=== PATIENT | female | born 1985 | race Caucasian/White ===

== ENCOUNTER → 2016-05-31 | Outpatient (CLI) | payer BC, MEDICAID, OTHER | LOC: MW.CHOBGYN 13:07 | PROVIDERS: ATTEND Nurse Practitioner Women's Health | DX: Z32.00 Encounter for pregnancy test, result unknown (principal) | CPT/HCPCS: 36415; 84702 ==

== ENCOUNTER → 2016-07-21 | Outpatient (CLI) | payer MEDICAID ==
[2016-07-21 11:11] LABS: HIV12 AG/AB 4TH GEN W/REFLEX 0.1 (<1.0)
== END ==
LOC: MW.CHOBGYN 08:49
PROVIDERS: ATTEND Advanced Practice Midwife
DX: Z34.90 Encounter for supervision of normal pregnancy, unspecified, unspecified trimester (principal)
CPT/HCPCS: 36415; 80305; 82950; 85025; 86592; 86762; 86803; 86850; 86900; 86901; 87086; 87340; 87389

== ENCOUNTER 2017-01-24 00:57 | Inpatient (IN) | payer MEDICAID ==
[2017-01-24] MEDS ORDERED: Misoprostol 25 MCG (1/4 of 100 MCG) Tab VAG PRN (01:05)
[2017-01-24] MEDS ORDERED: Sodium Chloride 0.9% 10 ML Syringe FLUSH PRN (01:05)
[2017-01-24] MEDS ORDERED: Methylergonovine 0.2 MG/1 ML Amp IM PRN (01:05)
[2017-01-24] MEDS ORDERED: Terbutaline 1 MG/ML SDV SUBCUT PRN (01:05)
[2017-01-24] MEDS ORDERED: Butorphanol 1 MG/ML SDV IVPUSH PRN (01:05)
[2017-01-24] MEDS ORDERED: Sodium Chloride 0.9% 2.5 ML Syringe FLUSH PRN (01:05)
[2017-01-24] MEDS ORDERED: Misoprostol 200 MCG Tab PO PRN (01:05)
[2017-01-24] MEDS ORDERED: Nalbuphine 10 MG/1 ML Vial IVPUSH PRN (01:05)
[2017-01-24] MEDS ORDERED: Lidocaine 1% 50 ML MDV INJECT PRN (01:05)
[2017-01-24] MEDS ORDERED: Water For Irrigation,Sterile 1,000 ML Container IRR PRN (01:05)
[2017-01-24] MEDS ORDERED: Carboprost Tromethamine 250 MCG/1 ML Amp IM PRN (01:05)
[2017-01-24] MEDS ORDERED: Misoprostol 25 MCG (1/4 of 100 MCG) Tab PO PRN (01:05)
[2017-01-24] MEDS ORDERED: Misoprostol 25 MCG (1/4 of 100 MCG) Tab VAG SCH (01:15)
[2017-01-24] MEDS ORDERED: Oxytocin/0.9 % Sodium Chloride 30 UNIT/500 ML BAG IV SCH (01:15)
[2017-01-24] MEDS ORDERED: Misoprostol 25 MCG (1/4 of 100 MCG) Tab PO SCH (01:15)
[2017-01-24] MEDS: Lactated Ringers 1,000 ML IV SCH ×2 (01:30→20:16)
--- NOTE | 2017-01-24 08:23 | PCM.LDHP ---
L&D History of Present Illness - General Date of Service: 01/24/17 Admit Problem/Dx: Patient Status Order with Admit Dx/Problem 01/24/17 01:05 Patient Status [ADT] Routine Admission Diagnosis/Problem Admission Diagnosis/Problem - planned 01/24/17 08:18 31yo 38 3/7wk IOL due to GDMA2. 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 Neurological History: Reports: Migraines Psychiatric History: Reports: Anxiety, Depression Endocrine/Metabolic History: Reports: Diabetes, Gestational - Infectious Disease History Infectious Disease History: Reports: Chicken Pox - Past Surgical History Female Surgical History: Reports: Lithotripsy/ESWL Endocrine Surgical History: Reports: None Social & Family History - Family History HEENT: Reports: Glaucoma, Impaired Vision, Macular Degeneration, Other (See Below) Other HEENT Family History: Father of patient had Fuchs' Corneal dystrophy and bilateral corneal transplant Cardiac: Reports: Bypass, Heart Failure, High Cholesterol, Hypertension, Other ( See Below) Respiratory: Reports: Other (See Below) Other Respiratory Family Hisory: Emphysema : Reports: Other (See Below) Other Family History: Father of patient had left nephrectomy r/t kidney cancer and a prostatectomy r/t prostate cancer. OBGYN: Reports: , Other (See Below) Other OBGYN Family History: Mother of patient had a breast lumpectomy x2. Neurological: Reports: Migraines, Parkinson's Psychiatric: Reports: Anxiety, Depression Endocrine/Metabolic: Reports: Diabetes, type II Oncologic: Reports: Colon, Prostate, Renal, Other (See Below) Other Oncologic Family History: Stomach - Tobacco Use Smoking Status *Q: Never Smoker Second Hand Smoke Exposure: No - Caffeine Use Caffeine Use: Reports: Coffee, Soda - Recreational Drug Use Recreational Drug Use: No H&P Review of Systems - Review of Systems: Review Of Systems: See Below General: Reports: No Symptoms HEENT: Reports: No Symptoms Pulmonary: Reports: No Symptoms Cardiovascular: Reports: No Symptoms Gastrointestinal: Reports: No Symptoms Genitourinary: Reports: No Symptoms Musculoskeletal: Reports: No Symptoms Skin: Reports: No Symptoms Psychiatric: Reports: No Symptoms Neurological: Reports: No Symptoms Hematologic/Lymphatic: Reports: No Symptoms Immunologic: Reports: No Symptoms L&D Exam - Exam Exam: See Below - Vital Signs Weight: 96.615 kg - Callejas Score Callejas Score Cervix Position: Anterior Callejas Score Consistency: Soft Callejas Score Effacement: 51-70% Callejas Score Dilation: 1-2 cm Callejas Score 's Station: -2 Callejas Score Total: 8 - Exam General: Alert, Oriented, Cooperative Cardiovascular: Regular Rate, Regular Rhythm, Normal S1, Normal S2 GI/Abdominal Exam: Soft, Non-Tender, No Organomegaly (gravid), No Abnormal Bruit , Pelvis Stable Rectal Exam: Deferred Genitourinary: Normal bimanual exam Back Exam: Full Range of Motion Extremities: Normal Range of Motion, Non-Tender, No Pedal Edema, Normal Capillary Refill Skin: Warm, Dry, Intact Neurological: Reflexes Equal Bilateral, Normal Speech, Normal Tone, Sensation Intact Psychiatric: Alert, Normal Affect, Normal Mood - Patient Data Lab Results Last 24 hrs: Laboratory Results - last 24 hr 01/24/17 01/24/17 Range/Units 01:30 01:30 WBC 8.35 (4.0-11.0) K/uL RBC 3.63 L (4.30-5.90) M/uL Hgb 10.5 L (12.0-16.0) g/dL Hct 32.6 L (36.0-46.0) % MCV 89.8 (80.0-98.0) fL MCH 28.9 (27.0-32.0) pg MCHC 32.2 (31.0-37.0) g/dL RDW Std Deviation 45.0 (28.0-62.0) fl RDW Coeff of Troy 15 (11.0-15.0) % Plt Count 166 (150-400) K/uL MPV 11.50 (7.40-12.00) fL Blood Type A POSITIVE Antibody Screen NEGATIVE Result Diagrams: 01/24/17 01:30 - Problem List (1) Supervision of normal IUP (intrauterine ) in primigravida SNOMED Code(s): 45324823, 916165779, 942380671 ICD Code: Z34.00 - ENCNTR FOR SUPRVSN OF NORMAL FIRST , UNSP TRIMESTER Status: Acute Priority: High Current Visit: Yes Qualifiers: Trimester: third trimester Qualified Code(s): Z34.03 - Encounter for supervision of normal first , third trimester (2) Gestational diabetes SNOMED Code(s): 77877123 ICD Code: O24.419 - GESTATIONAL DIABETES MELLITUS IN , UNSP CONTROL Status: Acute Priority: High Current Visit: Yes Qualifiers: Gestational diabetes mellitus control: oral hypoglycemic-controlled Trimester: third trimester Qualified Code(s): O24.415 - Gestational diabetes mellitus in , controlled by oral hypoglycemic drugs Problem List Initiated/Reviewed/Updated: Yes Orders Last 24hrs: Active Orders 24 hr Category Date Time Status Patient Status [ADT] Routine ADT 01/24/17 01:05 Active Bedrest Bathroom Privileges [RC] ASDIRECTED Care 01/24/17 01:05 Active Communication Order [RC] ASDIRECTED Care 01/24/17 01:05 Active May Shower [RC] ASDIRECTED Care 01/24/17 01:05 Active Notify Provider [RC] PRN Care 01/24/17 01:05 Active Oxygen Therapy [RC] ASDIRECTED Care 01/24/17 01:05 Active Up ad Jocelyne [RC] ASDIRECTED Care 01/24/17 01:05 Active Vital Signs [RC] PER UNIT ROUTINE Care 01/24/17 01:05 Active Regular Diet [DIET] Diet 01/24/17 Breakfast Active Butorphanol [Stadol] Med 01/24/17 01:05 Active 1 mg IVPUSH Q1H PRN Carboprost Tromethamine [Hemabate DS] Med 01/24/17 01:05 Active 250 mcg IM ASDIRECTED PRN Lactated Ringers [Ringers, Lactated] 1,000 ml Med 01/24/17 01:15 Active IV ASDIRECTED Lidocaine 1% [Xylocaine 1%] Med 01/24/17 01:05 Active 50 ml INJECT .ONCE PRN Methylergonovine [Methergine] Med 01/24/17 01:05 Active 0.2 mg IM ASDIRECTED PRN Misoprostol [Cytotec] Med 01/24/17 01:05 Active 200 mcg PO .ONCE PRN Misoprostol [Cytotec] Med 01/24/17 01:15 Active 25 mcg PO .ONCE Misoprostol [Cytotec] Med 01/24/17 01:05 Active 25 mcg PO Q4H PRN Misoprostol [Cytotec] Med 01/24/17 01:15 Active 25 mcg VAG .ONCE Misoprostol [Cytotec] Med 01/24/17 01:05 Active 25 mcg VAG Q4H PRN Nalbuphine [Nubain] Med 01/24/17 01:05 Active 10 mg IVPUSH Q1H PRN Oxytocin/0.9 % Sodium Chloride [Oxytocin 30 Unit/500 ML Med 01/24/17 01:15 Active -NS] 30 unit in 500 ml IV TITRATE Oxytocin/0.9 % Sodium Chloride [Oxytocin 30 Unit/500 ML Med 01/24/17 01:15 Active -NS] 30 unit in 500 ml IV TITRATE Sodium Chloride 0.9% [Saline Flush] Med 01/24/17 01:05 Active 10 ml FLUSH ASDIRECTED PRN Sodium Chloride 0.9% [Saline Flush] Med 01/24/17 01:05 Active 2.5 ml FLUSH ASDIRECTED PRN Terbutaline [Brethine] Med 01/24/17 01:05 Active 0.25 mg SUBCUT ASDIRECTED PRN Water For Irrigation,Sterile [Sterile Water for Med 01/24/17 01:05 Active Irrigation] 1,000 ml IRR ASDIRECTED PRN Scalp Electrode [WOMSER] Per Unit Routine Oth 01/24/17 01:05 Ordered Medication Administration Instruction [OM.PC] Q3H Oth 01/24/17 01:15 Ordered Peripheral IV Insertion Adult [OM.PC] Routine Oth 01/24/17 01:05 Ordered Resuscitation Status Routine Resus Stat 01/24/17 01:05 Ordered Medication Orders Butorphanol Tartrate (Stadol) 1 mg IVPUSH Q1H PRN PRN Reason: Pain Carboprost Tromethamine (Hemabate Ds) 250 mcg IM ASDIRECTED PRN PRN Reason: Post Hemorrhage Lactated Ringer's (Ringers, Lactated) 1,000 mls @ 150 mls/hr IV ASDIRECTED KALLIE Last Admin: 01/24/17 01:30 Dose: 999 mls/hr Oxytocin/Sodium Chloride (Oxytocin 30 Unit/500 Ml-Ns) 30 unit in 500 mls @ 500 mls/hr IV TITRATE KALLIE Oxytocin/Sodium Chloride (Oxytocin 30 Unit/500 Ml-Ns) 30 unit in 500 mls @ 2 mls/hr IV TITRATE KALLIE; 2 MUNITS/MIN PRN Reason: Protocol Lidocaine HCl (Xylocaine 1%) 50 ml INJECT .ONCE PRN PRN Reason: Laceration repair Methylergonovine Maleate (Methergine) 0.2 mg IM ASDIRECTED PRN PRN Reason: Post Hemorrhage Misoprostol (Cytotec) 200 mcg PO .ONCE PRN PRN Reason: Post Hemorrhage Misoprostol (Cytotec) 25 mcg VAG .ONCE KALLIE Last Admin: 01/24/17 01:47 Dose: 25 mcg Misoprostol (Cytotec) 25 mcg VAG Q4H PRN PRN Reason: Cervical Ripening Misoprostol (Cytotec) 25 mcg PO .ONCE KALLIE Last Admin: 01/24/17 01:47 Dose: 25 mcg Misoprostol (Cytotec) 25 mcg PO Q4H PRN PRN Reason: Cervical Ripening Nalbuphine HCl (Nubain) 10 mg IVPUSH Q1H PRN PRN Reason: Pain (severe 7-10) Sodium Chloride (Saline Flush) 10 ml FLUSH ASDIRECTED PRN PRN Reason: Keep Vein Open Sodium Chloride (Saline Flush) 2.5 ml FLUSH ASDIRECTED PRN PRN Reason: Keep Vein Open Sterile Water (Sterile Water For Irrigation) 1,000 ml IRR ASDIRECTED PRN PRN Reason: delivery Terbutaline Sulfate (Brethine) 0.25 mg SUBCUT ASDIRECTED PRN PRN Reason: Tacysystole Assessment/Plan Comment:: IOL A: 31yo 38 3/7wk IOL due to GDMA2. A+, RI, GBS neg P: Admit to L&D, Cytotec to pitocin per protocol, epidural prn. Dr Seay updated on pt status.
[2017-01-24] MEDS: Oxytocin/0.9 % Sodium Chloride 30 UNIT/500 ML BAG IV SCH (08:37)
[2017-01-24] MEDS ORDERED: Ondansetron 4 MG/2 ML SDV IVPUSH PRN (09:17)
[2017-01-24] MEDS ORDERED: Ropivacaine HCl/PF 100 ML ONE (19:35)
[2017-01-24] MEDS ORDERED: fentaNYL 100 MCG/2 ML SDV ONE (19:35)
--- NOTE | 2017-01-24 20:15 | PCM.PREANE ---
Preanesthetic Assessment - Anesthesia/Transfusion/Family Hx Anesthesia History: Prior Anesthesia Without Reaction Transfusion History: No Prior Transfusion(s) - Review of Systems General: No Symptoms Pulmonary: No Symptoms Cardiovascular: No Symptoms Gastrointestinal: No Symptoms Neurological: No Symptoms Other: Reports: None - Physical Assessment Height: 5 ft 1 in Weight: 96.615 kg ASA Class: 2 Mental Status: Alert & Oriented x3 Airway Class: Mallampati = 2 Dentition: Reports: Normal Dentition Thyro-Mental Finger Breadths: 3 Mouth Opening Finger Breadths: 3 ROM/Head Extension: Full Lungs: Clear to Auscultation, Normal Respiratory Effort Cardiovascular: Regular Rate, Regular Rhythm - Lab Values: Laboratory Last Values WBC 8.35 K/uL (4.0-11.0) 01/24/17 01:30 RBC 3.63 M/uL (4.30-5.90) L 01/24/17 01:30 Hgb 10.5 g/dL (12.0-16.0) L 01/24/17 01:30 Hct 32.6 % (36.0-46.0) L 01/24/17 01:30 MCV 89.8 fL (80.0-98.0) 01/24/17 01:30 MCH 28.9 pg (27.0-32.0) 01/24/17 01:30 MCHC 32.2 g/dL (31.0-37.0) 01/24/17 01:30 RDW Std Deviation 45.0 fl (28.0-62.0) 01/24/17 01:30 RDW Coeff of Troy 15 % (11.0-15.0) 01/24/17 01:30 Plt Count 166 K/uL (150-400) 01/24/17 01:30 MPV 11.50 fL (7.40-12.00) 01/24/17 01:30 Blood Type A POSITIVE 01/24/17 01:30 Antibody Screen NEGATIVE 01/24/17 01:30 - Allergies Allergies/Adverse Reactions: Allergies Allergy/AdvReac Type Severity Reaction Status Date / Time imitrex Allergy Shortness Uncoded 12/25/16 10:33 of Breath - Acknowledgements Anesthesia Type Planned: Epidural Pt an Appropriate Candidate for the Planned Anesthesia: Yes Alternatives and Risks of Anesthesia Discussed w Pt/Guardian: Yes Pt/Guardian Understands and Agrees with Anesthesia Plan: Yes PreAnesthesia Questionnaire HEENT History: Reports: None Cardiovascular History: Reports: None Respiratory History: Reports: None Gastrointestinal History: Reports: GERD Genitourinary History: Reports: Renal Calculus 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: , 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 : 1 Para: 0 LMP (Approximate): Musculoskeletal History: Reports: None Neurological History: Reports: Migraines Psychiatric History: Reports: Anxiety, Depression Endocrine/Metabolic History: Reports: Diabetes, Gestational, Obesity/BMI 30+ - Infectious Disease History Infectious Disease History: Reports: Chicken Pox - Past Surgical History Female Surgical History: Reports: Lithotripsy/ESWL Endocrine Surgical History: Reports: None - SUBSTANCE USE Smoking Status *Q: Never Smoker Tobacco Use Within Last Twelve Months: No Second Hand Smoke Exposure: No Recreational Drug Use History: No - CURRENT (IN HOUSE) MEDS Current Meds: Current Medications Butorphanol Tartrate (Stadol) 1 mg IVPUSH Q1H PRN PRN Reason: Pain Carboprost Tromethamine (Hemabate Ds) 250 mcg IM ASDIRECTED PRN PRN Reason: Post Hemorrhage Lactated Ringer's (Ringers, Lactated) 1,000 mls @ 150 mls/hr IV ASDIRECTED KALLIE Last Admin: 01/24/17 01:30 Dose: 999 mls/hr Oxytocin/Sodium Chloride (Oxytocin 30 Unit/500 Ml-Ns) 30 unit in 500 mls @ 500 mls/hr IV TITRATE KALLIE Oxytocin/Sodium Chloride (Oxytocin 30 Unit/500 Ml-Ns) 30 unit in 500 mls @ 2 mls/hr IV TITRATE KALLIE; 2 MUNITS/MIN PRN Reason: Protocol Last Titration: 01/24/17 16:44 Dose: 17 munits/min, 17 mls/hr Lidocaine HCl (Xylocaine 1%) 50 ml INJECT .ONCE PRN PRN Reason: Laceration repair Methylergonovine Maleate (Methergine) 0.2 mg IM ASDIRECTED PRN PRN Reason: Post Hemorrhage Misoprostol (Cytotec) 200 mcg PO .ONCE PRN PRN Reason: Post Hemorrhage Misoprostol (Cytotec) 25 mcg VAG .ONCE KALLIE Last Admin: 01/24/17 01:47 Dose: 25 mcg Misoprostol (Cytotec) 25 mcg VAG Q4H PRN PRN Reason: Cervical Ripening Misoprostol (Cytotec) 25 mcg PO .ONCE KALLIE Last Admin: 01/24/17 01:47 Dose: 25 mcg Misoprostol (Cytotec) 25 mcg PO Q4H PRN PRN Reason: Cervical Ripening Nalbuphine HCl (Nubain) 10 mg IVPUSH Q1H PRN PRN Reason: Pain (severe 7-10) Ondansetron HCl (Zofran) 4 mg IVPUSH Q6H PRN PRN Reason: Nausea/Vomiting Sodium Chloride (Saline Flush) 10 ml FLUSH ASDIRECTED PRN PRN Reason: Keep Vein Open Sodium Chloride (Saline Flush) 2.5 ml FLUSH ASDIRECTED PRN PRN Reason: Keep Vein Open Sterile Water (Sterile Water For Irrigation) 1,000 ml IRR ASDIRECTED PRN PRN Reason: delivery Terbutaline Sulfate (Brethine) 0.25 mg SUBCUT ASDIRECTED PRN PRN Reason: Tacysystole Discontinued Medications Fentanyl (Sublimaze) Confirm Administered Dose 100 mcg .ROUTE .STK-MED ONE Stop: 01/24/17 19:36 Ropivacaine (Naropin 0.2%) Confirm Administered Dose 100 mls @ as directed .ROUTE .STK-MED ONE Stop: 01/24/17 19:36
[2017-01-24] MEDS: Acetaminophen 500 MG Tab PO PRN (22:46)
[2017-01-25] MEDS ORDERED: Ropivacaine HCl/PF 100 ML ONE ×2 (04:39→15:52)
[2017-01-25] MEDS: Lactated Ringers 1,000 ML IV SCH (04:46)
[2017-01-25] MEDS ORDERED: Bupivacaine 0.5% 10 ML SDV ONE ×2 (04:46→20:07)
[2017-01-25] MEDS: Acetaminophen 500 MG Tab PO PRN ×3 (05:09→19:45)
--- NOTE | 2017-01-25 09:02 | PCM.PNLD ---
Labor Progress Note - VS & Meds Active Medications: Current Medications Acetaminophen (Tylenol Extra Strength) 1,000 mg PO Q6H PRN PRN Reason: Headache Last Admin: 01/25/17 05:09 Dose: 1,000 mg Butorphanol Tartrate (Stadol) 1 mg IVPUSH Q1H PRN PRN Reason: Pain Carboprost Tromethamine (Hemabate Ds) 250 mcg IM ASDIRECTED PRN PRN Reason: Post Hemorrhage Lactated Ringer's (Ringers, Lactated) 1,000 mls @ 150 mls/hr IV ASDIRECTED KALLIE Last Admin: 01/25/17 04:46 Dose: 150 mls/hr Oxytocin/Sodium Chloride (Oxytocin 30 Unit/500 Ml-Ns) 30 unit in 500 mls @ 500 mls/hr IV TITRATE KALLIE Oxytocin/Sodium Chloride (Oxytocin 30 Unit/500 Ml-Ns) 30 unit in 500 mls @ 2 mls/hr IV TITRATE KALLIE; 2 MUNITS/MIN PRN Reason: Protocol Last Titration: 01/25/17 00:12 Dose: 20 munits/min, 20 mls/hr Lidocaine HCl (Xylocaine 1%) 50 ml INJECT .ONCE PRN PRN Reason: Laceration repair Methylergonovine Maleate (Methergine) 0.2 mg IM ASDIRECTED PRN PRN Reason: Post Hemorrhage Misoprostol (Cytotec) 200 mcg PO .ONCE PRN PRN Reason: Post Hemorrhage Misoprostol (Cytotec) 25 mcg VAG .ONCE KALLIE Last Admin: 01/24/17 01:47 Dose: 25 mcg Misoprostol (Cytotec) 25 mcg VAG Q4H PRN PRN Reason: Cervical Ripening Misoprostol (Cytotec) 25 mcg PO .ONCE KALLIE Last Admin: 01/24/17 01:47 Dose: 25 mcg Misoprostol (Cytotec) 25 mcg PO Q4H PRN PRN Reason: Cervical Ripening Nalbuphine HCl (Nubain) 10 mg IVPUSH Q1H PRN PRN Reason: Pain (severe 7-10) Ondansetron HCl (Zofran) 4 mg IVPUSH Q6H PRN PRN Reason: Nausea/Vomiting Sodium Chloride (Saline Flush) 10 ml FLUSH ASDIRECTED PRN PRN Reason: Keep Vein Open Sodium Chloride (Saline Flush) 2.5 ml FLUSH ASDIRECTED PRN PRN Reason: Keep Vein Open Sterile Water (Sterile Water For Irrigation) 1,000 ml IRR ASDIRECTED PRN PRN Reason: delivery Terbutaline Sulfate (Brethine) 0.25 mg SUBCUT ASDIRECTED PRN PRN Reason: Tacysystole Discontinued Medications Bupivacaine HCl (Sensorcaine-Mpf 0.5%) Confirm Administered Dose 10 ml .ROUTE .STK-MED ONE Stop: 01/25/17 04:47 Fentanyl (Sublimaze) Confirm Administered Dose 100 mcg .ROUTE .STK-MED ONE Stop: 01/24/17 19:36 Ropivacaine (Naropin 0.2%) Confirm Administered Dose 100 mls @ as directed .ROUTE .STK-MED ONE Stop: 01/24/17 19:36 Ropivacaine (Naropin 0.2%) Confirm Administered Dose 100 mls @ as directed .ROUTE .STK-MED ONE Stop: 01/25/17 04:40 - Uterine Contractions Uterine Monitoring Mode: External [place] Contraction Intensity: Mild Uterine Resting Tone: Soft - Monitoring Monitor Mode: External Ultrasound Heart Rate (FHR) Baseline: 127 Heart Rate (FHR) Per Doppler: 136 Heart Rate (FHR) Variability: Moderate (6-25 bmp) Accelerations: Present, 10x10 (=/<32 wks) Decelerations: None Strip Review: Category I - Vaginal Exam Dilation (cm): 3 Effacement (Percent): 90 Station: -3 - Labor Progress (Free Text) Labor Progress: Start dictation on this patient and will start her again on side effects 25 mg by mouth and 25 mg vaginally and we will monitor her labor and would reevaluate at noon
[2017-01-25] MEDS: Oxytocin/0.9 % Sodium Chloride 30 UNIT/500 ML BAG IV SCH (13:14)
[2017-01-25] MEDS ORDERED: fentaNYL 100 MCG/2 ML SDV ONE ×4 (15:51→21:23)
--- NOTE | 2017-01-25 16:36 | PCM.SN ---
- Free Text/Narrative Note: Called to OB to restart patient epidural now that labor is more intense. Bolused with 10 ml 0.2% Naropin and 100 mcg Fentanyl (total 12 ml). Infusion of Naropin 0.2% 100 ml with Fentanyl 200 mcg started at 8 ml/hour as previously infused wtih bolus option every 15 minutes x 2 per hour of 5 ml (total 18 ml/ hour). Patient comfortable except for small window on right hip. Patient turned to right side per RN. Male in room states she has had hip pain with and has had to be adjusted twice.
[2017-01-25] MEDS ORDERED: Sodium Chloride 0.9% 2.5 ML Syringe FLUSH PRN (19:52)
[2017-01-25] MEDS ORDERED: ceFAZolin 2 GM in Premix Bag 1 BAG IV ONE (19:52)
[2017-01-25] MEDS ORDERED: Sodium Chloride 0.9% 10 ML Syringe FLUSH PRN (19:52)
[2017-01-25] MEDS ORDERED: Lactated Ringers 1,000 ML IV SCH ×2 (20:00→21:15)
[2017-01-25] MEDS ORDERED: Citric Acid/Sodium Citrate Solution 30 ML Cup PO SCH (20:00)
[2017-01-25] MEDS ORDERED: Oxytocin/0.9 % Sodium Chloride 30 UNIT/500 ML BAG IV SCH (20:00)
[2017-01-25] MEDS ORDERED: Oxytocin 10 Units/1 ML SDV ONE (20:02)
[2017-01-25] MEDS ORDERED: Ondansetron 4 MG/2 ML SDV ONE (20:02)
[2017-01-25] MEDS ORDERED: Morphine PF 10 MG/10 ML SDV ONE (20:04)
[2017-01-25] MEDS ORDERED: Midazolam 1 MG/ML 2 ML SDV ONE (20:51)
[2017-01-25] MEDS ORDERED: fentaNYL 100 MCG/2 ML SDV IVPUSH PRN (21:00)
[2017-01-25] MEDS ORDERED: Acetaminophen/oxyCODONE 325-5 MG Tab PO PRN ×3 (21:00→21:11)
[2017-01-25] MEDS ORDERED: Nalbuphine 10 MG/1 ML Vial IVPUSH PRN (21:00)
[2017-01-25] MEDS ORDERED: Octyl 2-Cyanoacrylate 1 Tube ONE (21:06)
[2017-01-25] MEDS ORDERED: Lanolin 100% Cream 7 GM Tube TOP PRN (21:11)
[2017-01-25] MEDS ORDERED: Bisacodyl 10 MG Supp RECTAL PRN (21:11)
[2017-01-25] MEDS ORDERED: Ondansetron 4 MG/2 ML SDV IV PRN (21:11)
[2017-01-25] MEDS ORDERED: Ibuprofen 800 MG Tab PO PRN (21:11)
[2017-01-25] MEDS ORDERED: diphenhydrAMINE 50 MG/ML SDV IVPUSH PRN (21:11)
--- NOTE | 2017-01-25 21:15 | PCM.OPNOTE ---
- General Post-Op/Procedure Note Date of Surgery/Procedure: 01/25/17 Operative Procedure(s): Primary C/ Section Term Post-Op Diagnosis: Same Anesthesia Technique: Epidural Primary Surgeon: Papi Seay Waste Treatment Operator: Bhavya Olson EBL in mLs: 700 Complications: None Condition: Good
[2017-01-25] MEDS ORDERED: Sodium Chloride 0.9% 20 ML ONE (21:24)
[2017-01-25] MEDS: Ketorolac 30 MG/ML SDV IVPUSH SCH (21:45)
--- NOTE | 2017-01-25 22:14 | PCM.POSTAN ---
POST ANESTHESIA ASSESSMENT - MENTAL STATUS Mental Status: Alert, Oriented - RESPIRATORY Respiratory Status: Respiratory Rate WNL, Airway Patent, O2 Saturation Stable - CARDIOVASCULAR CV Status: Pulse Rate WNL, Blood Pressure Stable - GASTROINTESTINAL GI Status: No Symptoms - POST OP HYDRATION Hydration Status: Adequate & Stable
--- NOTE | 2017-01-26 01:14 | OR ---
SURGEON: Papi Seay MD DATE OF PROCEDURE: PREOPERATIVE DIAGNOSES: Term , -induced hypertension, and failed induction. POSTOPERATIVE DIAGNOSES: Term , -induced hypertension, and failed induction. OPERATION PERFORMED: Primary low transverse section. PHOTOGRAPHIC PLATEMAKER: Bhavya Olson, certified nurse honing machine operator. ANESTHESIA: Epidural, Bush[place], nurse respiratory therapy technician and Dr. Castelan. ESTIMATED BLOOD LOSS: 700 mL. COMPLICATIONS: None. FINDINGS: Female fetus, score reported to be 8 and 9. The manager forensic attending the delivery is Dr. Alfaro. The weight is not available at this time. INDICATION: This patient is followed in our clinic. She is term. She is primigravida and she had PIH. She is admitted for elective induction. The patient induced with Cytotec and Pitocin. She progressed to 3 cm. She had epidural anesthesia. She had artificial rupture of the membrane. In spite of adequate contraction, the patient did not progress beyond 3 cm and she was ruptured over 24 hours. She started spiking fever and failure to progress and failed induction is diagnosed at this time and a decision was made to do a primary low transverse section. PROCEDURE IN DETAIL: The patient was brought to the OR, properly identified, and after adequate level of epidural anesthesia with a Kendall catheter in the bladder. The patient was prepped and draped in sterile fashion as usual. A time-out was taken, and then low transverse skin incision was done. The Misael's fascia and rectus fascia were opened in the direction of the incision. The 2 recti muscles were and peritoneal cavity was entered. Bladder flap was raised in the usual manner pushing the bladder away from the lower uterine segment. Low transverse uterine incision was done and extended manually, and fetus was delivered, was in a vertex position. Nuchal cord x1 is noted. The fetus once delivered, cried immediately. score reported to be 8 and 9. The weight is not available. The placenta delivered spontaneous, complete, and intact and repair of the lower uterine segment done with 2-0 Vicryl continuous interlocking for hemostasis. Reperitonealization done with 3-0 Vicryl continuous, and then the peritoneal cavity evacuated completely from all blood and blood clot and closed with 3-0 Vicryl continuous. The rectus fascia was closed with #1 PDS double strand continuous and the Misael's fascia is with 3-0 Vicryl continuous. The skin closed with 3-0 Vicryl in a subcuticular fashion using a Rodney needle and Dermabond. Instrument and sponge count was correct. The patient tolerated the procedure well, went to recovery room in stable general condition. SHAHANA BUCHANAN /[id number]
[2017-01-26] MEDS: Ketorolac 30 MG/ML SDV IVPUSH SCH ×4 (04:10→21:25)
[2017-01-26] MEDS: Docusate Sodium 100 MG Cap PO SCH ×2 (09:50→21:26)
--- NOTE | 2017-01-26 17:18 | PCM48HPAN ---
Post Anesthesia Note - EVALUATION WITHIN 48HRS OF ANESTHETIC Vital Signs in Normal Range: Yes Patient Participated in Evaluation: Yes Respiratory Function Stable: Yes Airway Patent: Yes Cardiovascular Function Stable: Yes Hydration Status Stable: Yes Pain Control Satisfactory: Yes Nausea and Vomiting Control Satisfactory: Yes Mental Status Recovered: Yes
[2017-01-27 09:08] VITALS: BP 106/78
--- NOTE | 2017-01-27 09:08 | PCM.DCSUM1 ---
Discharge Summary - Hospital Course Free Text/Narrative:: Discharge home with infant. Follow up 10 days for incision check and then 6 weeks post . Come sooner for any complications. - Discharge Data Discharge Date: 01/27/17 Discharge Disposition: Home, Self-Care 01 Condition: Good - Discharge Diagnosis/Problem(s) (1) Supervision of normal IUP (intrauterine ) in primigravida SNOMED Code(s): 34214835, [id number], 530834506 ICD Code: Z34.00 - ENCNTR FOR SUPRVSN OF NORMAL FIRST , UNSP TRIMESTER Status: Acute Priority: High Current Visit: Yes Qualifiers: Trimester: third trimester Qualified Code(s): Z34.03 - Encounter for supervision of normal first , third trimester (2) Gestational diabetes SNOMED Code(s): 50071985 ICD Code: O24.419 - GESTATIONAL DIABETES MELLITUS IN , UNSP CONTROL Status: Acute Priority: High Current Visit: Yes Qualifiers: Gestational diabetes mellitus control: oral hypoglycemic-controlled Trimester: third trimester Qualified Code(s): O24.415 - Gestational diabetes mellitus in , controlled by oral hypoglycemic drugs - Patient Summary/Data Operative Procedure(s) Performed: Primary C/ Section Term - Patient Instructions Diet: Usual Diet as Tolerated Activity: As Tolerated, Rest and Relax Today Driving: May Drive Today Showering/Bathing: May Shower Wound/Incision Care: Keep Operative Site/Wound Site Clean and Dry Notify Provider of: Fever, Increased Pain, Swelling and Redness, Drainage, Nausea and/or Vomiting Other/Special Instructions: Discharge home with infant. Follow up 10 days for incision check and then 6 weeks post . Come sooner for any complications. - Discharge Plan Referrals: [facility] [Outside] Bhavya Olson CNM [Mid-] - (1 week- February 02 @ 9:30am w/ Bhavya Olson 6 week- March 07 @ 9:30 am w/ Bhavya Olson) - General Info Date of Service: 01/27/17 Admission Dx/Problem (Free Text: Patient Status Order with Admit Dx/Problem 01/24/17 01:05 Patient Status [ADT] Routine Admission Diagnosis/Problem Admission Diagnosis/Problem - planned 01/24/17 08:18 31yo 38 3/7wk IOL due to GDMA2. A+, RI, GBS neg Functional Status: Reports: Pain Controlled, Tolerating Diet, Ambulating, Urinating - Review of Systems General: Reports: No Symptoms HEENT: Reports: No Symptoms Pulmonary: Reports: No Symptoms Cardiovascular: Reports: No Symptoms Gastrointestinal: Reports: No Symptoms Genitourinary: Reports: No Symptoms Musculoskeletal: Reports: No Symptoms Skin: Reports: No Symptoms Neurological: Reports: No Symptoms Psychiatric: Reports: No Symptoms - Patient Data Vitals - Most Recent: Last Vital Signs Temp 36.2 C 01/27/17 06:29 Pulse 105 H 01/27/17 06:29 Resp 17 01/27/17 06:29 BP 120/71 01/27/17 06:29 Pulse Ox 97 01/27/17 06:29 Weight - Most Recent: 96.615 kg I&O - Last 24 hours: Intake & Output 01/26/17 01/27/17 01/27/17 22:59 06:59 14:59 Intake Total 1200 Output Total 1200 Balance 0 Med Orders - Current: Current Medications Acetaminophen (Tylenol Extra Strength) 1,000 mg PO Q4H PRN PRN Reason: Headache Last Admin: 01/25/17 19:45 Dose: 1,000 mg Bisacodyl (Dulcolax) 10 mg RECTAL .ONCE PRN PRN Reason: Constipation Butorphanol Tartrate (Stadol) 1 mg IVPUSH Q1H PRN PRN Reason: Pain Carboprost Tromethamine (Hemabate Ds) 250 mcg IM ASDIRECTED PRN PRN Reason: Post Hemorrhage Citric Acid/Sodium Citrate (Bicitra Solution) 30 ml PO .ONCE KALLIE Last Admin: 01/25/17 20:13 Dose: 30 ml Diphenhydramine HCl (Benadryl) 25 mg IVPUSH Q6H PRN PRN Reason: Itching or Nausea Docusate Sodium (Colace) 100 mg PO BID KALLIE Last Admin: 01/26/17 21:26 Dose: 100 mg Emollient Ointment (Lansinoh Hpa) 0 gm TOP ASDIRECTED PRN PRN Reason: Sore Nipples Last Admin: 01/27/17 04:43 Dose: 1 tube Lactated Ringer's (Ringers, Lactated) 1,000 mls @ 150 mls/hr IV ASDIRECTED KALLIE Last Infusion: 01/25/17 13:15 Dose: 150 mls/hr Oxytocin/Sodium Chloride (Oxytocin 30 Unit/500 Ml-Ns) 30 unit in 500 mls @ 500 mls/hr IV TITRATE KALLIE Oxytocin/Sodium Chloride (Oxytocin 30 Unit/500 Ml-Ns) 30 unit in 500 mls @ 2 mls/hr IV TITRATE KALLIE; 2 MUNITS/MIN PRN Reason: Protocol Last Titration: 01/25/17 18:30 Dose: 22 munits/min, 22 mls/hr Oxytocin/Sodium Chloride (Oxytocin 30 Unit/500 Ml-Ns) 30 unit in 500 mls @ 250 mls/hr IV TITRATE KALLIE Lactated Ringer's (Ringers, Lactated) 1,000 mls @ 500 mls/hr IV .BOLUS KALLIE Lactated Ringer's (Ringers, Lactated) 1,000 mls @ 125 mls/hr IV ASDIRECTED [facility] Last Admin: 01/26/17 05:22 Dose: 125 mls/hr Ibuprofen (Motrin) 800 mg PO Q8H PRN PRN Reason: mild pain or fever Last Admin: 01/27/17 03:15 Dose: 800 mg Lidocaine HCl (Xylocaine 1%) 50 ml INJECT .ONCE PRN PRN Reason: Laceration repair Methylergonovine Maleate (Methergine) 0.2 mg IM ASDIRECTED PRN PRN Reason: Post Hemorrhage Misoprostol (Cytotec) 200 mcg PO .ONCE PRN PRN Reason: Post Hemorrhage Misoprostol (Cytotec) 25 mcg VAG .ONCE KALLIE Last Admin: 01/24/17 01:47 Dose: 25 mcg Misoprostol (Cytotec) 25 mcg VAG Q4H PRN PRN Reason: Cervical Ripening Last Admin: 01/25/17 09:18 Dose: 25 mcg Misoprostol (Cytotec) 25 mcg PO .ONCE KALLIE Last Admin: 01/24/17 01:47 Dose: 25 mcg Misoprostol (Cytotec) 25 mcg PO Q4H PRN PRN Reason: Cervical Ripening Last Admin: 01/25/17 09:18 Dose: 25 mcg Nalbuphine HCl (Nubain) 10 mg IVPUSH Q1H PRN PRN Reason: Pain (severe 7-10) Ondansetron HCl (Zofran) 4 mg IVPUSH Q6H PRN PRN Reason: Nausea/Vomiting Ondansetron HCl (Zofran) 4 mg IV Q4H PRN PRN Reason: Nausea/Vomiting Oxycodone/Acetaminophen (Percocet 325-5 Mg) 1 tab PO ONETIME PRN PRN Reason: Pain (moderate 4-6) Oxycodone/Acetaminophen (Percocet 325-5 Mg) 1 tab PO Q4H PRN PRN Reason: Pain (moderate 4-6) Last Admin: 01/27/17 03:14 Dose: 1 tab Oxycodone/Acetaminophen (Percocet 325-5 Mg) 2 tab PO Q4H PRN PRN Reason: Pain (moderate 4-6) Sodium Chloride (Saline Flush) 10 ml FLUSH ASDIRECTED PRN PRN Reason: Keep Vein Open Sodium Chloride (Saline Flush) 2.5 ml FLUSH ASDIRECTED PRN PRN Reason: Keep Vein Open Sodium Chloride (Saline Flush) 10 ml FLUSH ASDIRECTED PRN PRN Reason: Keep Vein Open Sodium Chloride (Saline Flush) 2.5 ml FLUSH ASDIRECTED PRN PRN Reason: Keep Vein Open Sterile Water (Sterile Water For Irrigation) 1,000 ml IRR ASDIRECTED PRN PRN Reason: delivery Terbutaline Sulfate (Brethine) 0.25 mg SUBCUT ASDIRECTED PRN PRN Reason: Tacysystole Discontinued Medications Acetaminophen (Tylenol Extra Strength) 1,000 mg PO Q6H PRN PRN Reason: Headache Last Admin: 01/25/17 05:09 Dose: 1,000 mg Bupivacaine HCl (Sensorcaine-Mpf 0.5%) Confirm Administered Dose 10 ml .ROUTE .STK-MED ONE Stop: 01/25/17 04:47 Last Admin: 01/26/17 23:23 Dose: Not Given Bupivacaine HCl (Sensorcaine-Mpf 0.5%) Confirm Administered Dose 20 ml .ROUTE .STK-MED ONE Stop: 01/25/17 20:08 Last Admin: 01/26/17 23:24 Dose: Not Given Fentanyl (Sublimaze) Confirm Administered Dose 100 mcg .ROUTE .STK-MED ONE Stop: 01/24/17 19:36 Fentanyl (Sublimaze) Confirm Administered Dose 300 mcg .ROUTE .STK-MED ONE Stop: 01/25/17 15:52 Last Admin: 01/26/17 23:23 Dose: Not Given Fentanyl (Sublimaze) Confirm Administered Dose 100 mcg .ROUTE .STK-MED ONE Stop: 01/25/17 20:52 Fentanyl (Sublimaze) Confirm Administered Dose 100 mcg .ROUTE .STK-MED ONE Stop: 01/25/17 20:56 Fentanyl (Sublimaze) 50 mcg IVPUSH Q5M PRN PRN Reason: Pain (severe 7-10) Stop: 01/26/17 21:00 Fentanyl (Sublimaze) Confirm Administered Dose 100 mcg .ROUTE .STK-MED ONE Stop: 01/25/17 21:24 Ropivacaine (Naropin 0.2%) Confirm Administered Dose 100 mls @ as directed .ROUTE .STK-MED ONE Stop: 01/24/17 19:36 Ropivacaine (Naropin 0.2%) Confirm Administered Dose 100 mls @ as directed .ROUTE .STK-MED ONE Stop: 01/25/17 04:40 Last Admin: 01/26/17 23:23 Dose: Not Given Ropivacaine (Naropin 0.2%) Confirm Administered Dose 100 mls @ as directed .ROUTE .STK-MED ONE Stop: 01/25/17 15:53 Last Admin: 01/26/17 23:24 Dose: Not Given Cefazolin Sodium/Dextrose 2 gm (/ Premix) 50 mls @ 100 mls/hr IV ONETIME ONE Stop: 01/25/17 20:21 Sodium Chloride (Normal Saline) Confirm Administered Dose 20 mls @ as directed .ROUTE .STK-MED ONE Stop: 01/25/17 21:25 Ketorolac Tromethamine (Toradol) 30 mg IVPUSH Q6H KALLIE Stop: 01/26/17 21:16 Last Admin: 01/26/17 21:25 Dose: 30 mg Midazolam HCl (Versed 1 Mg/Ml) Confirm Administered Dose 2 mg .ROUTE .STK-MED ONE Stop: 01/25/17 20:52 Morphine Sulfate (Duramorph Pf) Confirm Administered Dose 10 mg .ROUTE .STK-MED ONE Stop: 01/25/17 20:05 Nalbuphine HCl (Nubain) 5 mg IVPUSH Q3H PRN PRN Reason: Pruritis Stop: 01/26/17 21:01 Octyl Cyanoacrylate (Dermabond Advance) Confirm Administered Dose 1 applic .ROUTE .STK-MED ONE Stop: 01/25/17 21:07 Ondansetron HCl (Zofran) Confirm Administered Dose 4 mg .ROUTE .STK-MED ONE Stop: 01/25/17 20:03 Oxytocin (Pitocin) Confirm Administered Dose 20 unit .ROUTE .STK-MED ONE Stop: 01/25/17 20:03 - Exam General: Reports: Alert, Oriented, Cooperative, No Acute Distress Lungs: Reports: Clear to Auscultation, Normal Respiratory Effort Cardiovascular: Reports: Regular Rate, Regular Rhythm, No Murmurs GI/Abdominal Exam: Soft, Non-Tender, No Organomegaly (Female) Exam: Vaginal Bleeding Rectal (Female) Exam: Deferred Back Exam: Reports: Full Range of Motion Extremities: Normal Range of Motion, Non-Tender, Normal Capillary Refill, Pedal Edema Skin: Reports: Warm, Dry, Intact Wound/Incisions: Reports: Healing Well, No Drainage Neurological: Reports: No New Focal Deficit, Normal Speech, Normal Tone Psy/Mental Status: Reports: Alert *Q Meaningful Use (DIS) - VTE *Q VTE Criteria *Q: - Stroke *Q Stroke Criteria *Q: - AMI *Q AMI Criteria *Q:
== END 2017-01-27 11:00 | disposition home or self-care (01) | DRG 766 ==
LOC: MW.OBCHECK 00:57 → MW.OB 01:01 → MW.OBCHECK 01:02 → MW.OB 01:05 → OBSVTOIN 01-25 21:11 → MW.OB 01-26 04:54
PROVIDERS: ADMIT Obstetrics & Gynecology; ATTEND Obstetrics & Gynecology
PROC: 10D00Z1 Extraction of Products of Conception, Low, Open Approach (ICD-10-PCS; principal; 2017-01-25)
PROC: 3E0P7VZ Introduction of Hormone into Female Reproductive, Via Natural or Artificial Opening (ICD-10-PCS; 2017-01-25)
PROC: 3E0P3VZ Introduction of Hormone into Female Reproductive, Percutaneous Approach (ICD-10-PCS; 2017-01-25)
PROC: 10907ZC Drainage of Amniotic Fluid, Therapeutic from Products of Conception, Via Natural or Artificial Opening (ICD-10-PCS; 2017-01-25)
PROC: 3E0234Z Introduction of Serum, Toxoid and Vaccine into Muscle, Percutaneous Approach (ICD-10-PCS; 2017-01-25)
DX: O24.425 Gestational diabetes mellitus in childbirth, controlled by oral hypoglycemic drugs (principal); O61.0 Failed medical induction of labor; Z3A.38 38 weeks gestation of pregnancy; Z37.0 Single live birth; Z23 Encounter for immunization
CPT/HCPCS: 01967; 01968; 01996; 36415; 51703; 59025; 85014; 85018; 85027; 86850; 86900; 86901; A9270-GY; J0690; J1885; J2250; J2270; J2405; J2590; J2795; J3010; J7120

== ENCOUNTER 2018-06-15 07:00 | Day surgery (SDC) | payer MEDICAID ==
[2018-06-15] MEDS ORDERED: Ondansetron 4 MG/2 ML SDV ONE (09:16)
[2018-06-15] MEDS ORDERED: Propofol 200 MG/20 ML SDV ONE (09:16)
[2018-06-15] MEDS ORDERED: Midazolam 1 MG/ML 2 ML SDV ONE (09:16)
[2018-06-15] MEDS ORDERED: Lidocaine 2% 5 ML SDV ONE (09:16)
[2018-06-15] MEDS ORDERED: fentaNYL 250 MCG/5 ML SDV ONE (09:16)
--- NOTE | 2018-06-15 09:16 | PCM.PREANE ---
Preanesthetic Assessment - Anesthesia/Transfusion/Family Hx Anesthesia History: Prior Anesthesia Without Reaction Family History of Anesthesia Reaction: No Transfusion History: No Prior Transfusion(s) Intubation History: Unknown - Review of Systems General: No Symptoms Pulmonary: No Symptoms Cardiovascular: No Symptoms Gastrointestinal: No Symptoms Neurological: No Symptoms Other: Reports: None - Physical Assessment O2 Sat by Pulse Oximetry: 97 Respiratory Rate: 16 Vital Signs: Last Vital Signs Temp 36.2 C 06/15/18 07:59 Pulse 89 06/15/18 07:59 Resp 16 06/15/18 07:59 BP 119/71 06/15/18 07:59 Pulse Ox 97 06/15/18 07:59 Height: 1.55 m Weight: 86.636 kg ASA Class: 2 Mental Status: Alert & Oriented x3 Airway Class: Mallampati = 2 Dentition: Reports: Normal Dentition Thyro-Mental Finger Breadths: 3 Mouth Opening Finger Breadths: 2 ROM/Head Extension: Full Lungs: Clear to Auscultation, Normal Respiratory Effort Cardiovascular: Regular Rate, Regular Rhythm - Allergies Allergies/Adverse Reactions: Allergies Allergy/AdvReac Type Severity Reaction Status Date / Time imitrex Allergy Shortness Uncoded 06/13/18 12:09 of Breath - Blood Blood Available: No - Anesthesia Plan Pre-Op Medication Ordered: None - Acknowledgements Anesthesia Type Planned: General Anesthesia Pt an Appropriate Candidate for the Planned Anesthesia: Yes Alternatives and Risks of Anesthesia Discussed w Pt/Guardian: Yes Pt/Guardian Understands and Agrees with Anesthesia Plan: Yes PreAnesthesia Questionnaire HEENT History: Reports: Other (See Below) Other HEENT History: wears glasses/contacts Cardiovascular History: Reports: None Respiratory History: Reports: None Gastrointestinal History: Reports: Other (See Below) Other Gastrointestinal History: heartburn only with pregnancies Genitourinary History: Reports: Renal Calculus SYSTEM SUPPORT DEVELOPER History: Reports: Polycystic Ovaries, , Spontaneous Musculoskeletal History: Reports: None Neurological History: Reports: Migraines Psychiatric History: Reports: Anxiety, Depression Endocrine/Metabolic History: Reports: Diabetes, Gestational, Obesity/BMI 30+ Hematologic History: Reports: None Immunologic History: Reports: None Oncologic (Cancer) History: Reports: None Dermatologic History: Reports: None - Infectious Disease History Infectious Disease History: Reports: Chicken Pox - Past Surgical History Head Surgeries/Procedures: Reports: None HEENT Surgical History: Reports: None Cardiovascular Surgical History: Reports: None Respiratory Surgical History: Reports: None GI Surgical History: Reports: None Female Surgical History: Reports: Section, Lithotripsy/ESWL Endocrine Surgical History: Reports: None Neurological Surgical History: Reports: None Musculoskeletal Surgical History: Reports: None Oncologic Surgical History: Reports: None - SUBSTANCE USE Smoking Status *Q: Former Smoker (quit 3 years ago) Tobacco Use Within Last Twelve Months: No Recreational Drug Use History: No - HOME MEDS Home Medications: Home Meds . [No Known Home Meds] 06/13/18 [History]
[2018-06-15] MEDS ORDERED: Atropine 0.1 MG/ML 10 ML Syringe IVPUSH PRN ×2 (09:23)
[2018-06-15] MEDS ORDERED: Sodium Chloride 0.9% 10 ML Syringe FLUSH PRN (09:23)
[2018-06-15] MEDS ORDERED: Sodium Chloride 0.9% 10 ML SDV IV PRN (09:23)
[2018-06-15] MEDS ORDERED: EPINEPHrine 1:10,000 1 MG/10 ML Syringe IVPUSH PRN (09:23)
[2018-06-15] MEDS ORDERED: Albuterol 0.083% 2.5 MG/3 ML Neb Soln NEB PRN (09:23)
[2018-06-15] MEDS ORDERED: fentaNYL 100 MCG/2 ML SDV IVPUSH PRN (09:23)
[2018-06-15] MEDS ORDERED: 50% Dextrose in Water 50 ML Syringe IVPUSH PRN (09:23)
[2018-06-15] MEDS ORDERED: Sodium Chloride 0.9% 2.5 ML Syringe FLUSH PRN (09:23)
[2018-06-15] MEDS ORDERED: Naloxone 0.4 MG/ML Syringe IVPUSH PRN (09:23)
[2018-06-15] MEDS ORDERED: Phenylephrine/Normal Saline 100 MCG/ML 10 ML Syringe ONE (09:35)
[2018-06-15] MEDS ORDERED: ePHEDrine 50 MG/ML SDV ONE (09:37)
[2018-06-15] MEDS ORDERED: Promethazine 25 MG/ML SDV IM PRN (09:51)
[2018-06-15] MEDS ORDERED: Ondansetron 4 MG/2 ML SDV IVPUSH PRN (09:51)
[2018-06-15] MEDS ORDERED: Ketorolac 30 MG/ML SDV IVPUSH ONE (09:51)
[2018-06-15] MEDS ORDERED: Acetaminophen/oxyCODONE 325-5 MG Tab PO PRN ×2 (09:51)
[2018-06-15] MEDS ORDERED: Morphine 4 MG/ML Syringe IVPUSH PRN (09:51)
--- NOTE | 2018-06-15 09:54 | PCM.OPNOTE ---
- General Post-Op/Procedure Note Date of Surgery/Procedure: 06/15/18 Operative Procedure(s): D&E Pre Op Diagnosis: Blighted ovum Post-Op Diagnosis: Same Anesthesia Technique: General LMA Primary Surgeon: Papi Seay EBL in mLs: 150 Complications: None Condition: Good
--- NOTE | 2018-06-15 09:55 | PCM.DCSUM1 ---
Discharge Summary - Hospital Course Diagnosis: Stroke: No - Discharge Data Discharge Date: 06/15/18 Discharge Disposition: Home, Self-Care 01 Condition: Good - Patient Summary/Data Operative Procedure(s) Performed: D&E - Discharge Plan Home Medications: Home Meds . [No Known Home Meds] 06/13/18 [History] - Discharge Summary/Plan Comment DC Time >30 min.: Yes - General Info Date of Service: 06/15/18 Functional Status: Reports: Pain Controlled - Review of Systems General: Reports: No Symptoms HEENT: Reports: No Symptoms Pulmonary: Reports: No Symptoms Cardiovascular: Reports: No Symptoms Gastrointestinal: Reports: No Symptoms Genitourinary: Reports: No Symptoms Musculoskeletal: Reports: No Symptoms Skin: Reports: No Symptoms Neurological: Reports: No Symptoms Psychiatric: Reports: No Symptoms - Patient Data Vitals - Most Recent: Last Vital Signs Temp 36.2 C 06/15/18 07:59 Pulse 89 06/15/18 07:59 Resp 16 06/15/18 09:16 BP 119/71 06/15/18 07:59 Pulse Ox 97 06/15/18 09:16 Weight - Most Recent: 86.636 kg Med Orders - Current: Current Medications Albuterol (Proventil Neb Soln) 2.5 mg NEB ONETIME PRN PRN Reason: Wheezing Atropine Sulfate (Atropine 0.1 Mg/Ml) 0.5 mg IVPUSH ASDIRECTED PRN PRN Reason: Hypo-perfusion Atropine Sulfate (Atropine 0.1 Mg/Ml) 1 mg IVPUSH ASDIRECTED PRN PRN Reason: Hypo-Perfusion Dextrose/Water (Dextrose 50% In Water) 50 ml IVPUSH ASDIRECTED PRN PRN Reason: Hypoglycemia Epinephrine HCl (Epinephrine 1:10,000) 1 mg IVPUSH ASDIRECTED PRN PRN Reason: ACLS Guidelines Fentanyl (Sublimaze) 50 mcg IVPUSH Q5M PRN PRN Reason: Pain Ketorolac Tromethamine (Toradol) 30 mg IVPUSH ONETIME ONE Stop: 06/15/18 09:52 Ketorolac Tromethamine (Toradol) 30 mg IVPUSH Q6H PRN PRN Reason: Pain (severe 7-10) Stop: 06/20/18 09:51 Morphine Sulfate (Morphine) 4 mg IVPUSH Q2H PRN PRN Reason: Pain (severe 7-10) Naloxone HCl (Narcan) 0.1 mg IVPUSH ASDIRECTED PRN PRN Reason: Respiratory Depression Ondansetron HCl (Zofran) 4 mg IVPUSH Q6H PRN PRN Reason: Nausea/Vomiting Oxycodone/Acetaminophen (Percocet 325-5 Mg) 1 tab PO Q4H PRN PRN Reason: Pain (moderate 4-6) Oxycodone/Acetaminophen (Percocet 325-5 Mg) 2 tab PO Q4H PRN PRN Reason: Pain (moderate 4-6) Promethazine HCl (Phenergan) 25 mg IM Q6H PRN PRN Reason: Nausea/Vomiting Sodium Chloride (Saline Flush) 10 ml FLUSH ASDIRECTED PRN PRN Reason: Keep Vein Open Sodium Chloride (Saline Flush) 2.5 ml FLUSH ASDIRECTED PRN PRN Reason: Keep Vein Open Sodium Chloride (Normal Saline) 10 ml IV ASDIRECTED PRN PRN Reason: IV Use Discontinued Medications Ephedrine Sulfate (Ephedrine Sulfate) Confirm Administered Dose 50 mg .ROUTE .STK-MED ONE Stop: 06/15/18 09:38 Fentanyl (Sublimaze) Confirm Administered Dose 250 mcg .ROUTE .STK-MED ONE Stop: 06/15/18 09:17 Lidocaine (Xylocaine-Mpf 2%) Confirm Administered Dose 5 ml .ROUTE .STK-MED ONE Stop: 06/15/18 09:17 Midazolam HCl (Versed 1 Mg/Ml) Confirm Administered Dose 2 mg .ROUTE .STK-MED ONE Stop: 06/15/18 09:17 Ondansetron HCl (Zofran) Confirm Administered Dose 4 mg .ROUTE .STK-MED ONE Stop: 06/15/18 09:17 Phenylephrine HCl (Phenylephrine In Ns 100 Mcg/Ml) Confirm Administered Dose 1 mg .ROUTE .STK-MED ONE Stop: 06/15/18 09:36 Propofol (Diprivan 20 Ml) Confirm Administered Dose 200 mg .ROUTE .STK-MED ONE Stop: 06/15/18 09:17 - Exam General: Reports: Alert, Oriented HEENT: Reports: Pupils Equal, Pupils Reactive, EOMI, Mucous Membr. Moist/[place] Neck: Reports: Supple Lungs: Reports: Clear to Auscultation, Normal Respiratory Effort Cardiovascular: Reports: Regular Rate, Regular Rhythm GI/Abdominal Exam: Normal Bowel Sounds, Soft, Non-Tender, No Organomegaly, No Distention, No Abnormal Bruit, No Mass, Pelvis Stable (Female) Exam: Normal External Exam, Normal Speculum Exam, Normal Bimanual Exam Rectal (Female) Exam: Normal Exam, Normal Rectal Tone Back Exam: Reports: Normal Inspection, Full Range of Motion Extremities: Normal Inspection, Normal Range of Motion, Non-Tender, No Pedal Edema, Normal Capillary Refill Skin: Reports: Warm, Dry, Intact Wound/Incisions: Reports: Healing Well Neurological: Reports: No New Focal Deficit Psy/Mental Status: Reports: Alert, Normal Affect, Normal Mood
--- NOTE | 2018-06-15 11:07 | PCM48HPAN ---
Post Anesthesia Note - EVALUATION WITHIN 48HRS OF ANESTHETIC Vital Signs in Normal Range: Yes Patient Participated in Evaluation: Yes Respiratory Function Stable: Yes Airway Patent: Yes Cardiovascular Function Stable: Yes Hydration Status Stable: Yes Pain Control Satisfactory: Yes Nausea and Vomiting Control Satisfactory: Yes Mental Status Recovered: Yes Resp Rate: 12 - COMMENTS/OBSERVATIONS Free Text/Narrative:: no anesthesia problems
[2018-06-15 13:41] VITALS: BP 110/62
--- NOTE | 2018-06-15 14:30 | OR ---
SURGEON: Papi Seay MD DATE OF PROCEDURE: 06/15/2018 PREOPERATIVE DIAGNOSIS: Blighted ovum. POSTOPERATIVE DIAGNOSIS: Blighted ovum. OPERATION PERFORMED: Dilatation and evacuation. SINGING TEACHER: None. ANESTHESIA: LMA. ANESTHESIOLOGIST: Mr. Jhony Ernst. ESTIMATED BLOOD LOSS: 150 mL. COMPLICATIONS: None. INDICATION FOR SURGERY: This patient is followed in our clinic primarily by our nurse assistant import manager, she is supposed to be 9 weeks. The patient does have repeated ultrasound, which is confirmed that the patient have a blighted ovum. There is a pole and there is no cardiac activity. The patient is elected to have D and E. PROCEDURE IN DETAIL: The patient was brought to the OR, properly identified, and after adequate level of anesthesia, patient was placed in lithotomy position, prepped and draped in sterile fashion as usual. Straight catheter was used to empty the bladder and weighted speculum was placed in vagina. Single-tooth tenaculum was applied to the cervix. The cervix was sequentially dilated to accommodate #8 cannula. The cannula was placed in endometrial cavity and that cavity evacuated completely from all blood and blood clot and products of conception. Once that is accomplished, a small curette was used to check to make sure the uterus was empty. Once we ascertain that the uterus was empty, the procedure was ended. The instrument and sponge counts were correct. The patient tolerated the procedure well, went to recovery room in stable general condition. SHAHANA / CHANEL /[id number]
[2018-06-15] MEDS ORDERED: Ketorolac 30 MG/ML SDV IVPUSH PRN (16:00)
== END 2018-06-15 11:39 | disposition home or self-care (01) ==
LOC: MW.SDS 07:00
PROVIDERS: ATTEND Obstetrics & Gynecology
DX: O02.0 Blighted ovum and nonhydatidiform mole (principal); O03.4 Incomplete spontaneous abortion without complication; E66.9 Obesity, unspecified; E28.2 Polycystic ovarian syndrome; G43.909 Migraine, unspecified, not intractable, without status migrainosus; F41.9 Anxiety disorder, unspecified; Z87.42 Personal history of other diseases of the female genital tract; Z88.8 Allergy status to other drugs, medicaments and biological substances
CPT/HCPCS: 59812; J1885; J2001; J2250; J2370; J2405; J2704; J3010; 88305

== ENCOUNTER 2020-05-05 17:33 | Inpatient (IN) | payer MEDICAID ==
[2020-05-05] MEDS ORDERED: Sodium Chloride 0.9% 10 ML Syringe FLUSH PRN (18:00)
[2020-05-05] MEDS ORDERED: Sodium Chloride 0.9% 2.5 ML Syringe FLUSH PRN (18:00)
[2020-05-05] MEDS ORDERED: Lactated Ringers 1,000 ML IV SCH ×2 (18:00→21:15)
[2020-05-05] MEDS ORDERED: Sodium Chloride 0.9% 10 ML SDV IV PRN (18:00)
[2020-05-05] MEDS ORDERED: Morphine PF 10 MG/10 ML SDV ONE (18:54)
[2020-05-05] MEDS ORDERED: Phenylephrine 1% 10 MG/ML SDV ONE (19:04)
[2020-05-05] MEDS ORDERED: Ondansetron 4 MG/2 ML SDV ONE (19:04)
[2020-05-05] MEDS ORDERED: Ketorolac 30 MG/ML SDV ONE (19:04)
[2020-05-05] MEDS ORDERED: Oxytocin 10 Units/1 ML SDV ONE (19:04)
--- NOTE | 2020-05-05 19:18 | PCM.PREANE ---
Preanesthetic Assessment - Anesthesia/Transfusion/Family Hx Anesthesia History: Prior Anesthesia Without Reaction Family History of Anesthesia Reaction: No Transfusion History: No Prior Transfusion(s) Intubation History: Unknown - Physical Assessment NPO Status Date: 05/05/20 NPO Status Time: 14:30 Height: 1.55 m Weight: 95.708 kg ASA Class: 2E Airway Class: Mallampati = 2 Thyro-Mental Finger Breadths: 3 Mouth Opening Finger Breadths: 3 - Lab Values: Laboratory Last Values WBC 8.34 K/uL (4.0-11.0) 05/05/20 18:13 RBC 4.04 M/uL (4.30-5.90) L 05/05/20 18:13 Hgb 11.6 g/dL (12.0-16.0) L 05/05/20 18:13 Hct 36.6 % (36.0-46.0) 05/05/20 18:13 MCV 90.6 fL (80.0-98.0) 05/05/20 18:13 MCH 28.7 pg (27.0-32.0) 05/05/20 18:13 MCHC 31.7 g/dL (31.0-37.0) 05/05/20 18:13 RDW Std Deviation 49.0 fl (28.0-62.0) 05/05/20 18:13 RDW Coeff of [place] 15 % (11.0-15.0) 05/05/20 18:13 Plt Count 209 K/uL (150-400) 05/05/20 18:13 MPV 11.00 fL (7.40-12.00) 05/05/20 18:13 Nucleated RBC % 0.0 /100WBC 05/05/20 18:13 Nucleated RBCs # 0 K/uL 05/05/20 18:13 - Allergies Allergies/Adverse Reactions: Allergies Allergy/AdvReac Type Severity Reaction Status Date / Time imitrex Allergy Shortness Uncoded 05/01/20 08:34 of Breath - Acknowledgements Anesthesia Type Planned: Spinal Pt an Appropriate Candidate for the Planned Anesthesia: Yes Alternatives and Risks of Anesthesia Discussed w Pt/Guardian: Yes Pt/Guardian Understands and Agrees with Anesthesia Plan: Yes PreAnesthesia Questionnaire HEENT History: Reports: Other (See Below) Other HEENT History: wears glasses/contacts Cardiovascular History: Reports: None Respiratory History: Reports: None Gastrointestinal History: Reports: Other (See Below) Other Gastrointestinal History: heartburn only with pregnancies Genitourinary History: Reports: Renal Calculus 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 IT AUDITOR History: Reports: Polycystic Ovaries, , Spontaneous Musculoskeletal History: Reports: None Neurological History: Reports: Migraines Psychiatric History: Reports: Anxiety, Depression Endocrine/Metabolic History: Reports: Diabetes, Gestational, Obesity/BMI 30+ Hematologic History: Reports: None Immunologic History: Reports: None Oncologic (Cancer) History: Reports: None Dermatologic History: Reports: None - Infectious Disease History Infectious Disease History: Reports: Chicken Pox - Past Surgical History Female Surgical History: Reports: Section, Lithotripsy/ESWL - HOME MEDS Home Medications: Home Meds Aspirin [Adult Aspirin Regimen] 81 mg PO BEDTIME 05/01/20 [History] Docusate Sodium [Stool Softener] 100 mg PO BID PRN 05/01/20 [History] Iron 65 mg PO BID 05/01/20 [History] Pnv No.95/Ferrous Fum/Folic AC [ Caplet] 1 tab PO BEDTIME 05/01/20 [History] - CURRENT (IN HOUSE) MEDS Current Meds: Current Medications Citric Acid/Sodium Citrate (Bicitra Solution) 30 ml PO ONETIME ONE Stop: 05/05/20 20:01 Oxytocin/Sodium Chloride (Oxytocin 30 Unit/500 Ml-Ns) 30 unit in 500 mls @ 250 mls/hr IV TITRATE KALLIE Cefazolin Sodium/Dextrose 2 gm (/ Premix) 50 mls @ 100 mls/hr IV ONETIME ONE Stop: 05/05/20 20:29 Lactated Ringer's (Ringers, Lactated) 1,000 mls @ 500 mls/hr IV BOLUS [facility] Last Admin: 05/05/20 18:37 Dose: 999 mls/hr Documented by: Sodium Chloride (Saline Flush) 10 ml FLUSH ASDIRECTED PRN PRN Reason: Keep Vein Open Sodium Chloride (Saline Flush) 2.5 ml FLUSH ASDIRECTED PRN PRN Reason: Keep Vein Open Sodium Chloride (Normal Saline) 10 ml IV ASDIRECTED PRN PRN Reason: IV Use Discontinued Medications Ketorolac Tromethamine (Toradol) Confirm Administered Dose 30 mg .ROUTE .STK-MED ONE Stop: 05/05/20 19:05 Morphine Sulfate (Duramorph Pf) Confirm Administered Dose 10 mg .ROUTE .STK-MED ONE Stop: 05/05/20 18:55 Ondansetron HCl (Zofran) Confirm Administered Dose 4 mg .ROUTE .STK-MED ONE Stop: 05/05/20 19:05 Oxytocin (Pitocin) Confirm Administered Dose 20 unit .ROUTE .STK-MED ONE Stop: 05/05/20 19:05 Phenylephrine HCl (Justin-Synephrine) Confirm Administered Dose 10 mg .ROUTE .STK- MED ONE Stop: 05/05/20 19:05
[2020-05-05] MEDS ORDERED: Ondansetron 4 MG/2 ML SDV IVPUSH PRN ×2 (19:56→21:09)
[2020-05-05] MEDS ORDERED: Naloxone 0.4 MG/ML Syringe IVPUSH PRN (19:56)
[2020-05-05] MEDS ORDERED: Acetaminophen/oxyCODONE 325-5 MG Tab PO PRN ×3 (19:56→21:09)
[2020-05-05] MEDS ORDERED: fentaNYL 100 MCG/2 ML SDV IVPUSH PRN (19:56)
[2020-05-05] MEDS ORDERED: diphenhydrAMINE 50 MG/ML SDV IVPUSH PRN ×2 (19:56→21:09)
[2020-05-05] MEDS ORDERED: Nalbuphine 10 MG/1 ML Vial IVPUSH PRN (19:56)
[2020-05-05] MEDS ORDERED: Oxytocin/0.9 % Sodium Chloride 30 UNIT/500 ML BAG IV SCH (20:00)
[2020-05-05] MEDS ORDERED: ceFAZolin 2 GM in Premix Bag 1 BAG IV ONE (20:00)
[2020-05-05] MEDS ORDERED: Citric Acid/Sodium Citrate Solution 30 ML Cup PO ONE (20:00)
[2020-05-05] MEDS ORDERED: Propofol 200 MG/20 ML SDV ONE (20:38)
[2020-05-05] MEDS ORDERED: Lanolin 100% Cream 7 GM Tube TOP PRN (21:09)
[2020-05-05] MEDS ORDERED: Oxytocin 10 Units/1 ML SDV IM PRN (21:09)
[2020-05-05] MEDS ORDERED: Bisacodyl 10 MG Supp RECTAL PRN (21:09)
[2020-05-05] MEDS ORDERED: Misoprostol 200 MCG Tab RECTAL PRN (21:09)
[2020-05-05] MEDS ORDERED: Tranexamic Acid 1,000 MG in Sodium Chloride 0.9% 100 ML IV PRN (21:09)
[2020-05-05] MEDS ORDERED: Methylergonovine 0.2 MG/1 ML Amp IM PRN (21:09)
[2020-05-05] MEDS ORDERED: Ibuprofen 800 MG Tab PO PRN (21:09)
[2020-05-05] MEDS ORDERED: Oxytocin/Lactated Ringers 30 UNIT/500 ML BAG IV SCH (21:15)
--- NOTE | 2020-05-05 21:26 | PCM.OPNOTE ---
- General Post-Op/Procedure Note Date of Surgery/Procedure: 05/05/20 Operative Procedure(s): section Findings: thin lower uterine segment, subcutaneous scarring, and live born female infant, apgars 9 & 9 4040g, normal tubes and ovaries Pre Op Diagnosis: 39 week , prior , declines VTOL Post-Op Diagnosis: same Anesthesia Technique: Spinal Primary Surgeon: Brenda Jefferson Secondary Surgeon: Juana Coto Anesthesia Provider: Gilson Mckoy Heating And Ventilation Engineer: Candido Eric Pathology: none Fluid Replacement, Intraop: 1,800 EBL in mLs: 800 Complications: none known Condition: Good
--- NOTE | 2020-05-05 21:44 | PCM.POSTAN ---
POST ANESTHESIA ASSESSMENT - RESPIRATORY Respiratory Status: Respiratory Rate WNL - CARDIOVASCULAR CV Status: Pulse Rate WNL - GASTROINTESTINAL GI Status: No Symptoms - POST OP HYDRATION Hydration Status: Adequate & Stable
--- NOTE | 2020-05-06 00:06 | OR ---
SURGEON: Brenda Jefferson M.D. DATE OF PROCEDURE: 05/05/2020 PREOPERATIVE DIAGNOSES: A 39-week intrauterine , spontaneous rupture of membranes, prior delivery, declines vaginal trial of labor. POSTOPERATIVE DIAGNOSES: A 39-week intrauterine , spontaneous rupture of membranes, prior delivery, declines vaginal trial of labor. PROCEDURE: Repeat low-transverse section. PRIMARY SURGEON: Brenda Jefferson MD GOLD BLOWER: [place] MS-4. ANESTHESIA: Spinal. ESTIMATED BLOOD LOSS: 800 mL. FLUIDS: 1800 mL crystalloid. FINDINGS: Live-born female. score of 9 and 9. Weighing 4040 g. Normal-appearing uterus, tubes, and ovaries with a thin lower uterine segment and some subcutaneous scarring as well as scarring between the posterior fascia and rectus muscle. COMPLICATIONS: None known. DISPOSITION: Stable to Recovery. BRIEF HISTORY: This is a 34-year-old female, G1. She is G5, P 1-0-3-1. She presents at 39 weeks' gestation, spontaneous rupture of membranes, grossly ruptured with clear blood-tinged fluid, and a category 1 heart tones. Rare contractions that were not painful. She had been scheduled for repeat the following day. However, due to spontaneous rupture of membranes, we will proceed with delivery at this time. She is group B strep negative. Risks of delivery were discussed including bleeding; infection; injury to bowel, bladder, blood vessels, or other organs; risk of thromboembolic event; and risk of anesthesia. Understanding all these risks, she does desire to proceed. DESCRIPTION OF PROCEDURE: With the patient in left tilt position, under adequate spinal analgesia, the abdomen was prepped with chlorhexidine and draped in the usual fashion for abdominal surgery. SCDs were in place. Kendall catheter had been placed. Appropriate time-out was held, and she had received 2 g of Ancef IV. After documentation of adequate analgesia, the prior cicatrix was excised, and the incision was carried through subcutaneous tissue to the fascia which was scored transversely in the midline. The fascial incision was extended laterally using curved Salomon scissors. The fascia was elevated from the underlying rectus muscle using sharp and blunt dissection. The rectus muscles were in the midline using hemostats, and the peritoneum was entered sharply. A finger was placed into the peritoneal cavity. There were no adhesions. The incision was extended using sharp and blunt dissection. The Wali O retractor was placed. The visceral peritoneum over the lower uterine segment was incised and pushed downward to develop an adequate bladder flap. The lower uterine segment was noted to be extremely thin. The scalp was used to enter the uterine cavity. A finger was placed into the amniotic cavity, and there was clear amniotic fluid. The incision was extended cephalad and caudad for transverse extension, and the head was delivered via the uterine incision with fundal pressure without any difficulty. The infant was bulb suctioned by nose and mouth. After 1 minute, the cord was doubly clamped and cut. The was handed to the nurse in attendance at delivery. The infant was a liveborn female. scores 9 and 9. Weighing 4040 g. Cord blood was collected for cord ABGs as well as routine cord blood sampling. Pitocin was initiated after delivery of the infant to assist with delivery of the placenta, which was delivered with fundal massage. The uterus was then cleaned with a dry laparotomy tape. The cervix was opened with ring forceps. The uterine incision was closed with a running locking suture of 0 Polysorb followed by an imbricating layer of 0 Polysorb. There was an area of bleeding at the left lateral aspect of the incision, where it had extended slightly into the broad ligament. Two figure-of- eight sutures of 0 Polysorb were utilized and hemostasis was obtained. The uterine incision was then carefully inspected and was completely hemostatic. The tubes and ovaries were inspected and were normal. The pericolic gutters were cleaned with a wet laparotomy tape. The uterine incision was again inspected. It remained hemostatic with special attention to the left lateral aspect. The Wali O retractor was removed, and the bladder blade was placed for final inspection, confirming hemostasis. The rectus muscle and peritoneum were then loosely approximated in the midline using a running mattress suture of 0 Polysorb. The posterior aspect of the fascia was inspected and was hemostatic. The fascial incision was closed with a running suture of 0 Polysorb. Due to the body habitus, 3 additional [id number] sutures were placed along the incision for reinforcement using 0 Polysorb. Subcutaneous tissue was copiously irrigated and carefully inspected, and any areas of bleeding that were identified were cauterized. The deep subcutaneous tissue was reapproximated using a running suture of 3-0 plain. Subcutaneous suture of 3-0 Monocryl was utilized to reapproximate the skin followed by Dermabond. Final sponge, needle, and instrument counts were reported as correct. There were no known complications. The patient was transferred to Recovery in good condition. SHANTELL BUCHANAN /[id number]
[2020-05-06] MEDS: Ketorolac 30 MG/ML SDV IVPUSH SCH ×4 (03:47→21:31)
--- NOTE | 2020-05-06 07:35 | PCM.SURGPN ---
<Juana Coto - Last Filed: 05/06/20 07:33> - General Info Date of Service: 05/06/20 Date of Surgery/Procedure: 05/05/20 Post-Op Diagnosis: 39 week pregancy delivered Admission Diagnosis/Problem: Spontaneous rupture of amniotic membranes Functional Status: Reports: Pain Controlled - Review of Systems General: Reports: No Symptoms HEENT: Reports: No Symptoms Pulmonary: Reports: No Symptoms Cardiovascular: Reports: No Symptoms Gastrointestinal: Reports: No Symptoms Genitourinary: Reports: No Symptoms Musculoskeletal: Reports: No Symptoms Skin: Reports: No Symptoms Neurological: Reports: No Symptoms Psychiatric: Reports: No Symptoms - Patient Data Vitals - Most Recent: Last Vital Signs Temp 98.5 F 05/06/20 06:00 Pulse 78 05/06/20 06:00 Resp 16 05/06/20 06:00 BP 101/51 L 05/06/20 06:00 Pulse Ox 95 05/06/20 06:00 Weight - Most Recent: 95.708 kg I&O - Last 24 Hours: Intake & Output 05/05/20 05/06/20 05/06/20 22:59 06:59 14:59 Intake Total 1800 500 Output Total 175 345 Balance 1625 155 Lab Results Last 24 Hrs: Laboratory Results - last 24 hr 05/05/20 05/05/20 05/05/20 Range/Units 18:13 18:13 20:15 WBC 8.34 (4.0-11.0) K/uL RBC 4.04 L (4.30-5.90) M/uL Hgb 11.6 L (12.0-16.0) g/dL Hct 36.6 (36.0-46.0) % MCV 90.6 (80.0-98.0) fL MCH 28.7 (27.0-32.0) pg MCHC 31.7 (31.0-37.0) g/dL RDW Std Deviation 49.0 (28.0-62.0) fl RDW Coeff of [place] 15 (11.0-15.0) % Plt Count 209 (150-400) K/uL MPV 11.00 (7.40-12.00) fL Nucleated RBC % 0.0 /100WBC Nucleated RBCs # 0 K/uL Cord ABG pH 7.284 (7.18-7.38) Cord ABG Base Excess -3 (-10--2) Cord VBG pH 7.337 (7.25-7.45) Cord VBG Base Excess -2 (-10--2) Blood Type A POSITIVE Antibody Screen NEGATIVE 05/06/20 Range/Units 06:23 WBC (4.0-11.0) K/uL RBC (4.30-5.90) M/uL Hgb 9.8 L (12.0-16.0) g/dL Hct 30.3 L (36.0-46.0) % MCV (80.0-98.0) fL MCH (27.0-32.0) pg MCHC (31.0-37.0) g/dL RDW Std Deviation (28.0-62.0) fl RDW Coeff of [place] (11.0-15.0) % Plt Count (150-400) K/uL MPV (7.40-12.00) fL Nucleated RBC % /100WBC Nucleated RBCs # K/uL Cord ABG pH (7.18-7.38) Cord ABG Base Excess (-10--2) Cord VBG pH (7.25-7.45) Cord VBG Base Excess (-10--2) Blood Type Antibody Screen Med Orders - Current: Current Medications Bisacodyl (Dulcolax) 10 mg RECTAL ONETIME PRN PRN Reason: Constipation Diphenhydramine HCl (Benadryl) 25 mg IVPUSH Q4H PRN PRN Reason: Itching Stop: 05/06/20 19:57 Last Admin: 05/06/20 02:17 Dose: 25 mg Documented by: Diphenhydramine HCl (Benadryl) 25 mg IVPUSH Q6H PRN PRN Reason: Itching or Nausea Docusate Sodium (Colace) 100 mg PO BID [facility] Emollient Ointment (Lansinoh Hpa) 0 gm TOP ASDIRECTED PRN PRN Reason: Sore Nipples Fentanyl (Sublimaze) 50 mcg IVPUSH Q1H PRN PRN Reason: Pain (severe 7-10) Lactated Ringer's (Ringers, Lactated) 1,000 mls @ 125 mls/hr IV ASDIRECTED [facility] Last Admin: 05/05/20 21:51 Dose: 125 mls/hr Documented by: Oxytocin/Lactated Ringer's (Pitocin In Lr 30 Units/500 Ml) 30 unit in 500 mls @ 999 mls/hr IV TITRATE [facility]; Protocol Tranexamic Acid 1,000 mg/ (Sodium Chloride) 110 mls @ 660 mls/hr IV ONETIME PRN PRN Reason: Bleeding Ibuprofen (Motrin) 800 mg PO Q8H PRN PRN Reason: mild pain or fever Ketorolac Tromethamine (Toradol) 30 mg IVPUSH Q6H [facility] Stop: 05/06/20 19:01 Last Admin: 05/06/20 03:47 Dose: 30 mg Documented by: Methylergonovine Maleate (Methergine) 0.2 mg IM ONETIME PRN PRN Reason: Excessive Vaginal Bleeding Misoprostol (Cytotec) 1,000 mcg RECTAL ONETIME PRN PRN Reason: excessive bleeding Nalbuphine HCl (Nubain) 5 mg IVPUSH ASDIRECTED PRN PRN Reason: Itching Naloxone HCl (Narcan) 0.1 mg IVPUSH ONETIME PRN PRN Reason: Respiratory Depression Ondansetron HCl (Zofran) 4 mg IVPUSH Q6H PRN PRN Reason: Nausea Ondansetron HCl (Zofran) 4 mg IVPUSH Q4H PRN PRN Reason: Nausea/Vomiting Oxycodone/Acetaminophen (Percocet 325-5 Mg) 2 tab PO Q6H PRN PRN Reason: Pain (moderate 4-6) Oxycodone/Acetaminophen (Percocet 325-5 Mg) 1 tab PO Q4H PRN PRN Reason: Pain (moderate 4-6) Oxycodone/Acetaminophen (Percocet 325-5 Mg) 2 tab PO Q4H PRN PRN Reason: Pain (moderate 4-6) Oxytocin (Pitocin) 10 unit IM ASDIRECTED PRN PRN Reason: Excessive Vaginal Bleeding Discontinued Medications Citric Acid/Sodium Citrate (Bicitra Solution) 30 ml PO ONETIME ONE Stop: 05/05/20 20:01 Oxytocin/Sodium Chloride (Oxytocin 30 Unit/500 Ml-Ns) 30 unit in 500 mls @ 250 mls/hr IV TITRATE [facility] Cefazolin Sodium/Dextrose 2 gm (/ Premix) 50 mls @ 100 mls/hr IV ONETIME ONE Stop: 05/05/20 20:29 Lactated Ringer's (Ringers, Lactated) 1,000 mls @ 500 mls/hr IV BOLUS [facility] Last Admin: 05/05/20 18:37 Dose: 999 mls/hr Documented by: Ketorolac Tromethamine (Toradol) Confirm Administered Dose 30 mg .ROUTE .STK-MED ONE Stop: 05/05/20 19:05 Morphine Sulfate (Duramorph Pf) Confirm Administered Dose 10 mg .ROUTE .STK-MED ONE Stop: 05/05/20 18:55 Ondansetron HCl (Zofran) Confirm Administered Dose 4 mg .ROUTE .STK-MED ONE Stop: 05/05/20 19:05 Oxytocin (Pitocin) Confirm Administered Dose 20 unit .ROUTE .STK-MED ONE Stop: 05/05/20 19:05 Phenylephrine HCl (Justin-Synephrine) Confirm Administered Dose 10 mg .ROUTE .STK- MED ONE Stop: 05/05/20 19:05 Propofol (Diprivan 20 Ml) Confirm Administered Dose 200 mg .ROUTE .STK-MED ONE Stop: 05/05/20 20:39 Sodium Chloride (Saline Flush) 10 ml FLUSH ASDIRECTED PRN PRN Reason: Keep Vein Open Sodium Chloride (Saline Flush) 2.5 ml FLUSH ASDIRECTED PRN PRN Reason: Keep Vein Open Sodium Chloride (Normal Saline) 10 ml IV ASDIRECTED PRN PRN Reason: IV Use Sepsis Event Note - Evaluation Sepsis Screening Result: No Definite Risk - Focused Exam Vital Signs: Vital Signs Temp Pulse Resp BP Pulse Ox 05/06/20 06:00 98.5 F 78 16 101/51 L 95 05/06/20 03:30 98.1 F 87 19 139/75 05/06/20 01:00 97.9 F 77 18 104/68 96 05/05/20 23:01 97.7 F 79 17 117/67 96 05/05/20 22:05 83 14 110/67 98 05/05/20 21:16 81 16 92/73 98 - My Orders Last 24 Hours: Active Orders 24 hr Category Date Time Status Patient Status [ADT] Routine ADT 05/05/20 21:09 Active Ambulate [RC] PER UNIT ROUTINE Care 05/05/20 21:09 Active Antiembolic Devices [RC] PER UNIT ROUTINE Care 05/05/20 21:09 Active Bradycardia-Neuroaxis [facility] [RC] ROUTINE Care 05/05/20 19:57 Active Communication Order [RC] PER UNIT ROUTINE Care 05/05/20 21:09 Active Communication Order [RC] PER UNIT ROUTINE Care 05/05/20 21:09 Active Communication Order [RC] Per Unit Routine Care 05/05/20 21:09 Active Hypertension-Neuroaxis [facility] [RC] ROUTINE Care 05/05/20 19:57 Active Hypotension-Neuroaxis [facility] [RC] ROUTINE Care 05/05/20 19:57 Active May Shower [RC] ASDIRECTED Care 05/05/20 21:09 Active Notify Provider Intake and Out [RC] ASDIRECTED Care 05/05/20 21:11 Active Notify Provider Vital Signs [RC] ASDIRECTED Care 05/05/20 21:10 Active Oxygen Therapy [RC] PER UNIT ROUTINE Care 05/05/20 19:57 Active RT Incentive Spirometry [RC] Q2HWA Care 05/05/20 21:09 Active Vital Signs [RC] PER UNIT ROUTINE Care 05/05/20 21:09 Active Vital Signs [RC] Q1H Care 05/05/20 19:57 Active Regular Diet [DIET] Diet 05/06/20 Breakfast Active Acetaminophen/oxyCODONE [Percocet 325-5 MG] Med 05/05/20 21:09 Active 1 tab PO Q4H PRN Acetaminophen/oxyCODONE [Percocet 325-5 MG] Med 05/05/20 21:09 Active 2 tab PO Q4H PRN Acetaminophen/oxyCODONE [Percocet 325-5 MG] Med 05/05/20 19:56 Active 2 tab PO Q6H PRN Docusate Sodium [Colace] Med 05/06/20 09:00 Active 100 mg PO BID Ibuprofen [Motrin] Med 05/05/20 21:09 Active 800 mg PO Q8H PRN Ketorolac [Toradol] Med 05/06/20 01:00 Active 30 mg IVPUSH Q6H Lactated Ringers [Ringers, Lactated] 1,000 ml Med 05/05/20 21:15 Active IV ASDIRECTED Lanolin [Lansinoh HPA] Med 05/05/20 21:09 Active See Dose Instructions TOP ASDIRECTED PRN Methylergonovine [Methergine] Med 05/05/20 21:09 Active 0.2 mg IM ONETIME PRN Nalbuphine [Nubain] Med 05/05/20 19:56 Active 5 mg IVPUSH ASDIRECTED PRN Naloxone [Narcan] Med 05/05/20 19:56 Active 0.1 mg IVPUSH ONETIME PRN Ondansetron [Zofran] Med 05/05/20 21:09 Active 4 mg IVPUSH Q4H PRN Ondansetron [Zofran] Med 05/05/20 19:56 Active 4 mg IVPUSH Q6H PRN Oxytocin [Pitocin] Med 05/05/20 21:09 Active 10 unit IM ASDIRECTED PRN Oxytocin/Lactated Ringers [Pitocin in LR 30 Units/500 Med 05/05/20 21:15 Active ML] 30 unit in 500 ml IV TITRATE Tranexamic Acid [Cyklokapron] 1,000 mg Med 05/05/20 21:09 Active Sodium Chloride 0.9% [Normal Saline] 100 ml IV ONETIME bisacodyL [Dulcolax] Med 05/05/20 21:09 Active 10 mg RECTAL ONETIME PRN diphenhydrAMINE [Benadryl] Med 05/05/20 19:56 Active 25 mg IVPUSH Q4H PRN diphenhydrAMINE [Benadryl] Med 05/05/20 21:09 Active 25 mg IVPUSH Q6H PRN fentaNYL [Sublimaze] Med 05/05/20 19:56 Active 50 mcg IVPUSH Q1H PRN miSOPROStoL [Cytotec] Med 05/05/20 21:09 Active 1,000 mcg RECTAL ONETIME PRN Abdominal Binder [OM.PC] Urgent Oth 05/05/20 21:09 Ordered Assess Lochia [WOMSER] Per Unit Routine Oth 05/05/20 21:09 Ordered Assess Uterine Involution [WOMSER] Per Unit Routine Oth 05/05/20 21:09 Ordered Breast Pump [WOMSER] Per Unit Routine Oth 05/05/20 21:09 Ordered Peripheral IV Discontinue [OM.PC] Routine Oth 05/05/20 21:09 Ordered Sequential Compression Device [OM.PC] Per Unit Routine Oth 05/05/20 21:09 Ordered Resuscitation Status Routine Resus Stat 05/05/20 21:09 Ordered Medication Orders Bisacodyl (Dulcolax) 10 mg RECTAL ONETIME PRN PRN Reason: Constipation Diphenhydramine HCl (Benadryl) 25 mg IVPUSH Q4H PRN PRN Reason: Itching Stop: 05/06/20 19:57 Last Admin: 05/06/20 02:17 Dose: 25 mg Documented by: PHYLLIS Diphenhydramine HCl (Benadryl) 25 mg IVPUSH Q6H PRN PRN Reason: Itching or Nausea Docusate Sodium (Colace) 100 mg PO BID [facility] Emollient Ointment (Lansinoh Hpa) 0 gm TOP ASDIRECTED PRN PRN Reason: Sore Nipples Fentanyl (Sublimaze) 50 mcg IVPUSH Q1H PRN PRN Reason: Pain (severe 7-10) Lactated Ringer's (Ringers, Lactated) 1,000 mls @ 125 mls/hr IV ASDIRECTED [facility] Last Admin: 05/05/20 21:51 Dose: 125 mls/hr Documented by: PHYLLIS Oxytocin/Lactated Ringer's (Pitocin In Lr 30 Units/500 Ml) 30 unit in 500 mls @ 999 mls/hr IV TITRATE [facility]; Protocol Tranexamic Acid 1,000 mg/ (Sodium Chloride) 110 mls @ 660 mls/hr IV ONETIME PRN PRN Reason: Bleeding Ibuprofen (Motrin) 800 mg PO Q8H PRN PRN Reason: mild pain or fever Ketorolac Tromethamine (Toradol) 30 mg IVPUSH Q6H [facility] Stop: 05/06/20 19:01 Last Admin: 05/06/20 03:47 Dose: 30 mg Documented by: PHYLLIS Methylergonovine Maleate (Methergine) 0.2 mg IM ONETIME PRN PRN Reason: Excessive Vaginal Bleeding Misoprostol (Cytotec) 1,000 mcg RECTAL ONETIME PRN PRN Reason: excessive bleeding Nalbuphine HCl (Nubain) 5 mg IVPUSH ASDIRECTED PRN PRN Reason: Itching Naloxone HCl (Narcan) 0.1 mg IVPUSH ONETIME PRN PRN Reason: Respiratory Depression Ondansetron HCl (Zofran) 4 mg IVPUSH Q6H PRN PRN Reason: Nausea Ondansetron HCl (Zofran) 4 mg IVPUSH Q4H PRN PRN Reason: Nausea/Vomiting Oxycodone/Acetaminophen (Percocet 325-5 Mg) 2 tab PO Q6H PRN PRN Reason: Pain (moderate 4-6) Oxycodone/Acetaminophen (Percocet 325-5 Mg) 1 tab PO Q4H PRN PRN Reason: Pain (moderate 4-6) Oxycodone/Acetaminophen (Percocet 325-5 Mg) 2 tab PO Q4H PRN PRN Reason: Pain (moderate 4-6) Oxytocin (Pitocin) 10 unit IM ASDIRECTED PRN PRN Reason: Excessive Vaginal Bleeding <Katie Corrigan - Last Filed: 05/06/20 10:24> - Patient Data Vitals - Most Recent: Last Vital Signs Temp 36.6 C 05/06/20 07:45 Pulse 75 05/06/20 08:00 Resp 16 05/06/20 08:00 BP 110/61 05/06/20 08:00 Pulse Ox 96 05/06/20 08:00 I&O - Last 24 Hours: Intake & Output 05/05/20 05/06/20 05/06/20 22:59 06:59 14:59 Intake Total 1800 500 Output Total 175 345 Balance 1625 155 Lab Results Last 24 Hrs: Laboratory Results - last 24 hr 05/05/20 05/05/20 05/05/20 Range/Units 18:13 18:13 20:15 WBC 8.34 (4.0-11.0) K/uL RBC 4.04 L (4.30-5.90) M/uL Hgb 11.6 L (12.0-16.0) g/dL Hct 36.6 (36.0-46.0) % MCV 90.6 (80.0-98.0) fL MCH 28.7 (27.0-32.0) pg MCHC 31.7 (31.0-37.0) g/dL RDW Std Deviation 49.0 (28.0-62.0) fl RDW Coeff of [place] 15 (11.0-15.0) % Plt Count 209 (150-400) K/uL MPV 11.00 (7.40-12.00) fL Nucleated RBC % 0.0 /100WBC Nucleated RBCs # 0 K/uL Cord ABG pH 7.284 (7.18-7.38) Cord ABG Base Excess -3 (-10--2) Cord VBG pH 7.337 (7.25-7.45) Cord VBG Base Excess -2 (-10--2) Blood Type A POSITIVE Antibody Screen NEGATIVE 05/06/20 Range/Units 06:23 WBC (4.0-11.0) K/uL RBC (4.30-5.90) M/uL Hgb 9.8 L (12.0-16.0) g/dL Hct 30.3 L (36.0-46.0) % MCV (80.0-98.0) fL MCH (27.0-32.0) pg MCHC (31.0-37.0) g/dL RDW Std Deviation (28.0-62.0) fl RDW Coeff of [place] (11.0-15.0) % Plt Count (150-400) K/uL MPV (7.40-12.00) fL Nucleated RBC % /100WBC Nucleated RBCs # K/uL Cord ABG pH (7.18-7.38) Cord ABG Base Excess (-10--2) Cord VBG pH (7.25-7.45) Cord VBG Base Excess (-10--2) Blood Type Antibody Screen Med Orders - Current: Current Medications Bisacodyl (Dulcolax) 10 mg RECTAL ONETIME PRN PRN Reason: Constipation Diphenhydramine HCl (Benadryl) 25 mg IVPUSH Q4H PRN PRN Reason: Itching Stop: 05/06/20 19:57 Last Admin: 05/06/20 02:17 Dose: 25 mg Documented by: Diphenhydramine HCl (Benadryl) 25 mg IVPUSH Q6H PRN PRN Reason: Itching or Nausea Docusate Sodium (Colace) 100 mg PO BID [facility] Last Admin: 05/06/20 09:28 Dose: 100 mg Documented by: Emollient Ointment (Lansinoh Hpa) 0 gm TOP ASDIRECTED PRN PRN Reason: Sore Nipples Fentanyl (Sublimaze) 50 mcg IVPUSH Q1H PRN PRN Reason: Pain (severe 7-10) Lactated Ringer's (Ringers, Lactated) 1,000 mls @ 125 mls/hr IV ASDIRECTED [facility] Last Admin: 05/05/20 21:51 Dose: 125 mls/hr Documented by: Oxytocin/Lactated Ringer's (Pitocin In Lr 30 Units/500 Ml) 30 unit in 500 mls @ 999 mls/hr IV TITRATE [facility]; Protocol Tranexamic Acid 1,000 mg/ (Sodium Chloride) 110 mls @ 660 mls/hr IV ONETIME PRN PRN Reason: Bleeding Ibuprofen (Motrin) 800 mg PO Q8H PRN PRN Reason: mild pain or fever Ketorolac Tromethamine (Toradol) 30 mg IVPUSH Q6H [facility] Stop: 05/06/20 19:01 Last Admin: 05/06/20 09:28 Dose: 30 mg Documented by: Methylergonovine Maleate (Methergine) 0.2 mg IM ONETIME PRN PRN Reason: Excessive Vaginal Bleeding Misoprostol (Cytotec) 1,000 mcg RECTAL ONETIME PRN PRN Reason: excessive bleeding Nalbuphine HCl (Nubain) 5 mg IVPUSH ASDIRECTED PRN PRN Reason: Itching Naloxone HCl (Narcan) 0.1 mg IVPUSH ONETIME PRN PRN Reason: Respiratory Depression Ondansetron HCl (Zofran) 4 mg IVPUSH Q6H PRN PRN Reason: Nausea Ondansetron HCl (Zofran) 4 mg IVPUSH Q4H PRN PRN Reason: Nausea/Vomiting Oxycodone/Acetaminophen (Percocet 325-5 Mg) 2 tab PO Q6H PRN PRN Reason: Pain (moderate 4-6) Oxycodone/Acetaminophen (Percocet 325-5 Mg) 1 tab PO Q4H PRN PRN Reason: Pain (moderate 4-6) Oxycodone/Acetaminophen (Percocet 325-5 Mg) 2 tab PO Q4H PRN PRN Reason: Pain (moderate 4-6) Oxytocin (Pitocin) 10 unit IM ASDIRECTED PRN PRN Reason: Excessive Vaginal Bleeding Discontinued Medications Citric Acid/Sodium Citrate (Bicitra Solution) 30 ml PO ONETIME ONE Stop: 05/05/20 20:01 Oxytocin/Sodium Chloride (Oxytocin 30 Unit/500 Ml-Ns) 30 unit in 500 mls @ 250 mls/hr IV TITRATE [facility] Cefazolin Sodium/Dextrose 2 gm (/ Premix) 50 mls @ 100 mls/hr IV ONETIME ONE Stop: 05/05/20 20:29 Lactated Ringer's (Ringers, Lactated) 1,000 mls @ 500 mls/hr IV [facility] Last Admin: 05/05/20 18:37 Dose: 999 mls/hr Documented by: Ketorolac Tromethamine (Toradol) Confirm Administered Dose 30 mg .ROUTE .STK-MED ONE Stop: 05/05/20 19:05 Morphine Sulfate (Duramorph Pf) Confirm Administered Dose 10 mg .ROUTE .STK-MED ONE Stop: 05/05/20 18:55 Ondansetron HCl (Zofran) Confirm Administered Dose 4 mg .ROUTE .STK-MED ONE Stop: 05/05/20 19:05 Oxytocin (Pitocin) Confirm Administered Dose 20 unit .ROUTE .STK-MED ONE Stop: 05/05/20 19:05 Phenylephrine HCl (Justin-Synephrine) Confirm Administered Dose 10 mg .ROUTE .STK- MED ONE Stop: 05/05/20 19:05 Propofol (Diprivan 20 Ml) Confirm Administered Dose 200 mg .ROUTE .STK-MED ONE Stop: 05/05/20 20:39 Sodium Chloride (Saline Flush) 10 ml FLUSH ASDIRECTED PRN PRN Reason: Keep Vein Open Sodium Chloride (Saline Flush) 2.5 ml FLUSH ASDIRECTED PRN PRN Reason: Keep Vein Open Sodium Chloride (Normal Saline) 10 ml IV ASDIRECTED PRN PRN Reason: IV Use Sepsis Event Note - Focused Exam Vital Signs: Vital Signs Temp Pulse Resp BP Pulse Ox 05/06/20 08:00 75 16 110/61 96 05/06/20 07:45 36.6 C 05/06/20 06:00 36.9 C 78 16 101/51 L 95 05/06/20 03:30 36.7 C 87 19 139/75 05/06/20 01:00 36.6 C 77 18 104/68 96 05/05/20 23:01 36.5 C 79 17 117/67 96 - Problem List & Annotations (1) delivery delivered SNOMED Code(s): 204698443 Code(s): O82 - ENCOUNTER FOR DELIVERY WITHOUT INDICATION Status: Acute Priority: High Current Visit: No - Problem List Review Problem List Initiated/Reviewed/Updated: Yes - My Orders Last 24 Hours: Active Orders 24 hr Category Date Time Status Patient Status [ADT] Routine ADT 05/05/20 21:09 Active Ambulate [RC] PER UNIT ROUTINE Care 05/05/20 21:09 Active Antiembolic Devices [RC] PER UNIT ROUTINE Care 05/05/20 21:09 Active Bradycardia-Neuroaxis [facility] [RC] ROUTINE Care 05/05/20 19:57 Active Communication Order [RC] PER UNIT ROUTINE Care 05/05/20 21:09 Active Communication Order [RC] PER UNIT ROUTINE Care 05/05/20 21:09 Active Communication Order [RC] Per Unit Routine Care 05/05/20 21:09 Active Hypertension-Neuroaxis [facility] [RC] ROUTINE Care 05/05/20 19:57 Active Hypotension-Neuroaxis [facility] [RC] ROUTINE Care 05/05/20 19:57 Active May Shower [RC] ASDIRECTED Care 05/05/20 21:09 Active Notify Provider Intake and Out [RC] ASDIRECTED Care 05/05/20 21:11 Active Notify Provider Vital Signs [RC] ASDIRECTED Care 05/05/20 21:10 Active Oxygen Therapy [RC] PER UNIT ROUTINE Care 05/05/20 19:57 Active RT Incentive Spirometry [RC] Q2HWA Care 05/05/20 21:09 Active Vital Signs [RC] PER UNIT ROUTINE Care 05/05/20 21:09 Active Vital Signs [RC] Q1H Care 05/05/20 19:57 Active Regular Diet [DIET] Diet 05/06/20 Breakfast Active Acetaminophen/oxyCODONE [Percocet 325-5 MG] Med 05/05/20 21:09 Active 1 tab PO Q4H PRN Acetaminophen/oxyCODONE [Percocet 325-5 MG] Med 05/05/20 21:09 Active 2 tab PO Q4H PRN Acetaminophen/oxyCODONE [Percocet 325-5 MG] Med 05/05/20 19:56 Active 2 tab PO Q6H PRN Docusate Sodium [Colace] Med 05/06/20 09:00 Active 100 mg PO BID Ibuprofen [Motrin] Med 05/05/20 21:09 Active 800 mg PO Q8H PRN Ketorolac [Toradol] Med 05/06/20 01:00 Active 30 mg IVPUSH Q6H Lactated Ringers [Ringers, Lactated] 1,000 ml Med 05/05/20 21:15 Active IV ASDIRECTED Lanolin [Lansinoh HPA] Med 05/05/20 21:09 Active See Dose Instructions TOP ASDIRECTED PRN Methylergonovine [Methergine] Med 05/05/20 21:09 Active 0.2 mg IM ONETIME PRN Nalbuphine [Nubain] Med 05/05/20 19:56 Active 5 mg IVPUSH ASDIRECTED PRN Naloxone [Narcan] Med 05/05/20 19:56 Active 0.1 mg IVPUSH ONETIME PRN Ondansetron [Zofran] Med 05/05/20 21:09 Active 4 mg IVPUSH Q4H PRN Ondansetron [Zofran] Med 05/05/20 19:56 Active 4 mg IVPUSH Q6H PRN Oxytocin [Pitocin] Med 05/05/20 21:09 Active 10 unit IM ASDIRECTED PRN Oxytocin/Lactated Ringers [Pitocin in LR 30 Units/500 Med 05/05/20 21:15 Active ML] 30 unit in 500 ml IV TITRATE Tranexamic Acid [Cyklokapron] 1,000 mg Med 05/05/20 21:09 Active Sodium Chloride 0.9% [Normal Saline] 100 ml IV ONETIME bisacodyL [Dulcolax] Med 05/05/20 21:09 Active 10 mg RECTAL ONETIME PRN diphenhydrAMINE [Benadryl] Med 05/05/20 19:56 Active 25 mg IVPUSH Q4H PRN diphenhydrAMINE [Benadryl] Med 05/05/20 21:09 Active 25 mg IVPUSH Q6H PRN fentaNYL [Sublimaze] Med 05/05/20 19:56 Active 50 mcg IVPUSH Q1H PRN miSOPROStoL [Cytotec] Med 05/05/20 21:09 Active 1,000 mcg RECTAL ONETIME PRN Abdominal Binder [OM.PC] Urgent Oth 05/05/20 21:09 Ordered Assess Lochia [WOMSER] Per Unit Routine Oth 05/05/20 21:09 Ordered Assess Uterine Involution [WOMSER] Per Unit Routine Oth 05/05/20 21:09 Ordered Breast Pump [WOMSER] Per Unit Routine Oth 05/05/20 21:09 Ordered Peripheral IV Discontinue [OM.PC] Routine Oth 05/05/20 21:09 Ordered Sequential Compression Device [OM.PC] Per Unit Routine Oth 05/05/20 21:09 Ordered Resuscitation Status Routine Resus Stat 05/05/20 21:09 Ordered Medication Orders Bisacodyl (Dulcolax) 10 mg RECTAL ONETIME PRN PRN Reason: Constipation Diphenhydramine HCl (Benadryl) 25 mg IVPUSH Q4H PRN PRN Reason: Itching Stop: 05/06/20 19:57 Last Admin: 05/06/20 02:17 Dose: 25 mg Documented by: PHYLLIS Diphenhydramine HCl (Benadryl) 25 mg IVPUSH Q6H PRN PRN Reason: Itching or Nausea Docusate Sodium (Colace) 100 mg PO BID [facility] Last Admin: 05/06/20 09:28 Dose: 100 mg Documented by: BAKEMOL Emollient Ointment (Lansinoh Hpa) 0 gm TOP ASDIRECTED PRN PRN Reason: Sore Nipples Fentanyl (Sublimaze) 50 mcg IVPUSH Q1H PRN PRN Reason: Pain (severe 7-10) Lactated Ringer's (Ringers, Lactated) 1,000 mls @ 125 mls/hr IV ASDIRECTED [facility] Last Admin: 05/05/20 21:51 Dose: 125 mls/hr Documented by: PHYLLIS Oxytocin/Lactated Ringer's (Pitocin In Lr 30 Units/500 Ml) 30 unit in 500 mls @ 999 mls/hr IV TITRATE [facility]; Protocol Tranexamic Acid 1,000 mg/ (Sodium Chloride) 110 mls @ 660 mls/hr IV ONETIME PRN PRN Reason: Bleeding Ibuprofen (Motrin) 800 mg PO Q8H PRN PRN Reason: mild pain or fever Ketorolac Tromethamine (Toradol) 30 mg IVPUSH Q6H KALLIE Stop: 05/06/20 19:01 Last Admin: 05/06/20 09:28 Dose: 30 mg Documented by: Admin: 05/06/20 03:47 Dose: 30 mg Documented by: PHYLLIS Methylergonovine Maleate (Methergine) 0.2 mg IM ONETIME PRN PRN Reason: Excessive Vaginal Bleeding Misoprostol (Cytotec) 1,000 mcg RECTAL ONETIME PRN PRN Reason: excessive bleeding Nalbuphine HCl (Nubain) 5 mg IVPUSH ASDIRECTED PRN PRN Reason: Itching Naloxone HCl (Narcan) 0.1 mg IVPUSH ONETIME PRN PRN Reason: Respiratory Depression Ondansetron HCl (Zofran) 4 mg IVPUSH Q6H PRN PRN Reason: Nausea Ondansetron HCl (Zofran) 4 mg IVPUSH Q4H PRN PRN Reason: Nausea/Vomiting Oxycodone/Acetaminophen (Percocet 325-5 Mg) 2 tab PO Q6H PRN PRN Reason: Pain (moderate 4-6) Oxycodone/Acetaminophen (Percocet 325-5 Mg) 1 tab PO Q4H PRN PRN Reason: Pain (moderate 4-6) Oxycodone/Acetaminophen (Percocet 325-5 Mg) 2 tab PO Q4H PRN PRN Reason: Pain (moderate 4-6) Oxytocin (Pitocin) 10 unit IM ASDIRECTED PRN PRN Reason: Excessive Vaginal Bleeding - Assessment Assessment (Free Text/Narrative):: POD 1 status post repeat c section - Plan Plan (Free Text/Narrative):: VS and labs are reassuring. Continue postoperative cares. Ambulate today and may remove martin.
[2020-05-06] MEDS: Docusate Sodium 100 MG Cap PO SCH ×2 (09:28→21:30)
--- NOTE | 2020-05-06 13:43 | PCM48HPAN ---
Post Anesthesia Note - EVALUATION WITHIN 48HRS OF ANESTHETIC Vital Signs in Normal Range: Yes Patient Participated in Evaluation: Yes Respiratory Function Stable: Yes Airway Patent: Yes Cardiovascular Function Stable: Yes Hydration Status Stable: Yes Pain Control Satisfactory: Yes (Reports adequate pain control, 2-3/10) Nausea and Vomiting Control Satisfactory: Yes (Denies N/V, taking PO well) Mental Status Recovered: Yes Vital Signs: Last Vital Signs Temp 36.6 C 05/06/20 07:45 Pulse 75 05/06/20 08:00 Resp 16 05/06/20 08:00 BP 110/61 05/06/20 08:00 Pulse Ox 96 05/06/20 08:00 - COMMENTS/OBSERVATIONS Free Text/Narrative:: Ambulating without assistance. Full return of strength and sensation to BLE.
[2020-05-06] MEDS ORDERED: Ketorolac 30 MG/ML SDV ONE (21:25)
--- NOTE | 2020-05-07 07:39 | PCM.SURGPN ---
<Juana Coto - Last Filed: 05/07/20 07:34> - General Info Date of Service: 05/07/20 Date of Surgery/Procedure: 05/05/20 POD#: 2 Post-Op Diagnosis: 39 week - delivered Functional Status: Reports: Pain Controlled - Review of Systems General: Reports: No Symptoms HEENT: Reports: No Symptoms Pulmonary: Reports: No Symptoms Cardiovascular: Reports: No Symptoms Gastrointestinal: Reports: No Symptoms Genitourinary: Reports: No Symptoms Musculoskeletal: Reports: No Symptoms Skin: Reports: No Symptoms Neurological: Reports: No Symptoms Psychiatric: Reports: No Symptoms - Patient Data Vitals - Most Recent: Last Vital Signs Temp 97.6 F 05/07/20 04:36 Pulse 91 05/07/20 04:36 Resp 16 05/07/20 04:36 BP 105/69 05/07/20 04:36 Pulse Ox 95 05/07/20 04:36 Weight - Most Recent: 95.708 kg Med Orders - Current: Current Medications Bisacodyl (Dulcolax) 10 mg RECTAL ONETIME PRN PRN Reason: Constipation Diphenhydramine HCl (Benadryl) 25 mg IVPUSH Q6H PRN PRN Reason: Itching or Nausea Docusate Sodium (Colace) 100 mg PO BID [facility] Last Admin: 05/06/20 21:30 Dose: 100 mg Documented by: Emollient Ointment (Lansinoh Hpa) 0 gm TOP ASDIRECTED PRN PRN Reason: Sore Nipples Fentanyl (Sublimaze) 50 mcg IVPUSH Q1H PRN PRN Reason: Pain (severe 7-10) Lactated Ringer's (Ringers, Lactated) 1,000 mls @ 125 mls/hr IV ASDIRECTED [facility] Last Admin: 05/05/20 21:51 Dose: 125 mls/hr Documented by: Oxytocin/Lactated Ringer's (Pitocin In Lr 30 Units/500 Ml) 30 unit in 500 mls @ 999 mls/hr IV TITRATE [facility]; Protocol Tranexamic Acid 1,000 mg/ (Sodium Chloride) 110 mls @ 660 mls/hr IV ONETIME PRN PRN Reason: Bleeding Ibuprofen (Motrin) 800 mg PO Q8H PRN PRN Reason: mild pain or fever Methylergonovine Maleate (Methergine) 0.2 mg IM ONETIME PRN PRN Reason: Excessive Vaginal Bleeding Misoprostol (Cytotec) 1,000 mcg RECTAL ONETIME PRN PRN Reason: excessive bleeding Nalbuphine HCl (Nubain) 5 mg IVPUSH ASDIRECTED PRN PRN Reason: Itching Naloxone HCl (Narcan) 0.1 mg IVPUSH ONETIME PRN PRN Reason: Respiratory Depression Ondansetron HCl (Zofran) 4 mg IVPUSH Q6H PRN PRN Reason: Nausea Ondansetron HCl (Zofran) 4 mg IVPUSH Q4H PRN PRN Reason: Nausea/Vomiting Oxycodone/Acetaminophen (Percocet 325-5 Mg) 2 tab PO Q6H PRN PRN Reason: Pain (moderate 4-6) Oxycodone/Acetaminophen (Percocet 325-5 Mg) 1 tab PO Q4H PRN PRN Reason: Pain (moderate 4-6) Oxycodone/Acetaminophen (Percocet 325-5 Mg) 2 tab PO Q4H PRN PRN Reason: Pain (moderate 4-6) Last Admin: 05/07/20 03:13 Dose: 2 tab Documented by: Oxytocin (Pitocin) 10 unit IM ASDIRECTED PRN PRN Reason: Excessive Vaginal Bleeding Discontinued Medications Citric Acid/Sodium Citrate (Bicitra Solution) 30 ml PO ONETIME ONE Stop: 05/05/20 20:01 Diphenhydramine HCl (Benadryl) 25 mg IVPUSH Q4H PRN PRN Reason: Itching Stop: 05/06/20 19:57 Last Admin: 05/06/20 02:17 Dose: 25 mg Documented by: Oxytocin/Sodium Chloride (Oxytocin 30 Unit/500 Ml-Ns) 30 unit in 500 mls @ 250 mls/hr IV TITRATE [facility] Cefazolin Sodium/Dextrose 2 gm (/ Premix) 50 mls @ 100 mls/hr IV ONETIME ONE Stop: 05/05/20 20:29 Lactated Ringer's (Ringers, Lactated) 1,000 mls @ 500 mls/hr IV BOLUS [facility] Last Admin: 05/05/20 18:37 Dose: 999 mls/hr Documented by: Ketorolac Tromethamine (Toradol) Confirm Administered Dose 30 mg .ROUTE .STK-MED ONE Stop: 05/05/20 19:05 Ketorolac Tromethamine (Toradol) 30 mg IVPUSH Q6H [facility] Stop: 05/06/20 19:01 Last Admin: 05/06/20 21:31 Dose: 30 mg Documented by: Ketorolac Tromethamine (Toradol) Confirm Administered Dose 30 mg .ROUTE .STK-MED ONE Stop: 05/06/20 21:26 Morphine Sulfate (Duramorph Pf) Confirm Administered Dose 10 mg .ROUTE .STK-MED ONE Stop: 05/05/20 18:55 Ondansetron HCl (Zofran) Confirm Administered Dose 4 mg .ROUTE .STK-MED ONE Stop: 05/05/20 19:05 Oxytocin (Pitocin) Confirm Administered Dose 20 unit .ROUTE .STK-MED ONE Stop: 05/05/20 19:05 Phenylephrine HCl (Justin-Synephrine) Confirm Administered Dose 10 mg .ROUTE .STK- MED ONE Stop: 05/05/20 19:05 Propofol (Diprivan 20 Ml) Confirm Administered Dose 200 mg .ROUTE .STK-MED ONE Stop: 05/05/20 20:39 Sodium Chloride (Saline Flush) 10 ml FLUSH ASDIRECTED PRN PRN Reason: Keep Vein Open Sodium Chloride (Saline Flush) 2.5 ml FLUSH ASDIRECTED PRN PRN Reason: Keep Vein Open Sodium Chloride (Normal Saline) 10 ml IV ASDIRECTED PRN PRN Reason: IV Use - Exam Wound/Incisions: Healing Well, No Drainage General: Alert, Oriented HEENT: Pupils Equal Neck: Supple Lungs: Clear to Auscultation, Normal Respiratory Effort Cardiovascular: Regular Rate, Regular Rhythm GI/Abdominal Exam: Soft, No Organomegaly, No Distention, No Mass, Other (appropriately tender) Extremities: Normal Inspection, Normal Range of Motion, Non-Tender, No Pedal Edema, Normal Capillary Refill Skin: Warm, Dry, Intact Neurological: No New Focal Deficit Psy/Mental Status: Alert, Normal Affect, Normal Mood Sepsis Event Note - Evaluation Sepsis Screening Result: No Definite Risk - Focused Exam Vital Signs: Vital Signs Temp Pulse Resp BP Pulse Ox 05/07/20 04:36 97.6 F 91 16 105/69 95 05/06/20 20:00 83 17 97 05/06/20 19:37 97.3 F 75 16 97/58 L 95 - Problem List & Annotations (1) delivery delivered SNOMED Code(s): 148909428 Code(s): O82 - ENCOUNTER FOR DELIVERY WITHOUT INDICATION Status: Acute Priority: High Current Visit: No Onset Date: ~05/05/20 - Problem List Review Problem List Initiated/Reviewed/Updated: Yes - My Orders Last 24 Hours: Active Orders 24 hr Category Date Time Status Docusate Sodium [Colace] Med 05/06/20 09:00 Active 100 mg PO BID Medication Orders Bisacodyl (Dulcolax) 10 mg RECTAL ONETIME PRN PRN Reason: Constipation Diphenhydramine HCl (Benadryl) 25 mg IVPUSH Q6H PRN PRN Reason: Itching or Nausea Docusate Sodium (Colace) 100 mg PO BID [facility] Last Admin: 05/06/20 21:30 Dose: 100 mg Documented by: Admin: 05/06/20 09:28 Dose: 100 mg Documented by: BAKEMOL Emollient Ointment (Lansinoh Hpa) 0 gm TOP ASDIRECTED PRN PRN Reason: Sore Nipples Fentanyl (Sublimaze) 50 mcg IVPUSH Q1H PRN PRN Reason: Pain (severe 7-10) Lactated Ringer's (Ringers, Lactated) 1,000 mls @ 125 mls/hr IV ASDIRECTED [facility] Last Admin: 05/05/20 21:51 Dose: 125 mls/hr Documented by: PHYLLIS Oxytocin/Lactated Ringer's (Pitocin In Lr 30 Units/500 Ml) 30 unit in 500 mls @ 999 mls/hr IV TITRATE [facility]; Protocol Tranexamic Acid 1,000 mg/ (Sodium Chloride) 110 mls @ 660 mls/hr IV ONETIME PRN PRN Reason: Bleeding Ibuprofen (Motrin) 800 mg PO Q8H PRN PRN Reason: mild pain or fever Methylergonovine Maleate (Methergine) 0.2 mg IM ONETIME PRN PRN Reason: Excessive Vaginal Bleeding Misoprostol (Cytotec) 1,000 mcg RECTAL ONETIME PRN PRN Reason: excessive bleeding Nalbuphine HCl (Nubain) 5 mg IVPUSH ASDIRECTED PRN PRN Reason: Itching Naloxone HCl (Narcan) 0.1 mg IVPUSH ONETIME PRN PRN Reason: Respiratory Depression Ondansetron HCl (Zofran) 4 mg IVPUSH Q6H PRN PRN Reason: Nausea Ondansetron HCl (Zofran) 4 mg IVPUSH Q4H PRN PRN Reason: Nausea/Vomiting Oxycodone/Acetaminophen (Percocet 325-5 Mg) 2 tab PO Q6H PRN PRN Reason: Pain (moderate 4-6) Oxycodone/Acetaminophen (Percocet 325-5 Mg) 1 tab PO Q4H PRN PRN Reason: Pain (moderate 4-6) Oxycodone/Acetaminophen (Percocet 325-5 Mg) 2 tab PO Q4H PRN PRN Reason: Pain (moderate 4-6) Last Admin: 05/07/20 03:13 Dose: 2 tab Documented by: CUCA Oxytocin (Pitocin) 10 unit IM ASDIRECTED PRN PRN Reason: Excessive Vaginal Bleeding - Assessment Assessment (Free Text/Narrative):: 39 week - POD2 s/p live female , apgars 9 & 9. Doing well, ambulating and voiding appropriately. Desires discharge, is medically stable for d/c to home today - Plan Plan (Free Text/Narrative):: 1. routine pp cares 2. pain control - PO pain meds 3. discharge home today 4. f/u [facility] 4 weeks <Katie Corrigan - Last Filed: 05/07/20 08:21> - Patient Data Vitals - Most Recent: Last Vital Signs Temp 36.2 C 05/07/20 08:13 Pulse 86 05/07/20 08:13 Resp 18 05/07/20 08:13 BP 121/72 05/07/20 08:13 Pulse Ox 97 05/07/20 08:13 Med Orders - Current: Current Medications Bisacodyl (Dulcolax) 10 mg RECTAL ONETIME PRN PRN Reason: Constipation Diphenhydramine HCl (Benadryl) 25 mg IVPUSH Q6H PRN PRN Reason: Itching or Nausea Docusate Sodium (Colace) 100 mg PO BID [facility] Last Admin: 05/06/20 21:30 Dose: 100 mg Documented by: Emollient Ointment (Lansinoh Hpa) 0 gm TOP ASDIRECTED PRN PRN Reason: Sore Nipples Fentanyl (Sublimaze) 50 mcg IVPUSH Q1H PRN PRN Reason: Pain (severe 7-10) Lactated Ringer's (Ringers, Lactated) 1,000 mls @ 125 mls/hr IV ASDIRECTED [facility] Last Admin: 05/05/20 21:51 Dose: 125 mls/hr Documented by: Oxytocin/Lactated Ringer's (Pitocin In Lr 30 Units/500 Ml) 30 unit in 500 mls @ 999 mls/hr IV TITRATE [facility]; Protocol Tranexamic Acid 1,000 mg/ (Sodium Chloride) 110 mls @ 660 mls/hr IV ONETIME PRN PRN Reason: Bleeding Ibuprofen (Motrin) 800 mg PO Q8H PRN PRN Reason: mild pain or fever Methylergonovine Maleate (Methergine) 0.2 mg IM ONETIME PRN PRN Reason: Excessive Vaginal Bleeding Misoprostol (Cytotec) 1,000 mcg RECTAL ONETIME PRN PRN Reason: excessive bleeding Nalbuphine HCl (Nubain) 5 mg IVPUSH ASDIRECTED PRN PRN Reason: Itching Naloxone HCl (Narcan) 0.1 mg IVPUSH ONETIME PRN PRN Reason: Respiratory Depression Ondansetron HCl (Zofran) 4 mg IVPUSH Q6H PRN PRN Reason: Nausea Ondansetron HCl (Zofran) 4 mg IVPUSH Q4H PRN PRN Reason: Nausea/Vomiting Oxycodone/Acetaminophen (Percocet 325-5 Mg) 2 tab PO Q6H PRN PRN Reason: Pain (moderate 4-6) Oxycodone/Acetaminophen (Percocet 325-5 Mg) 1 tab PO Q4H PRN PRN Reason: Pain (moderate 4-6) Oxycodone/Acetaminophen (Percocet 325-5 Mg) 2 tab PO Q4H PRN PRN Reason: Pain (moderate 4-6) Last Admin: 05/07/20 03:13 Dose: 2 tab Documented by: Oxytocin (Pitocin) 10 unit IM ASDIRECTED PRN PRN Reason: Excessive Vaginal Bleeding Discontinued Medications Citric Acid/Sodium Citrate (Bicitra Solution) 30 ml PO ONETIME ONE Stop: 05/05/20 20:01 Diphenhydramine HCl (Benadryl) 25 mg IVPUSH Q4H PRN PRN Reason: Itching Stop: 05/06/20 19:57 Last Admin: 05/06/20 02:17 Dose: 25 mg Documented by: Oxytocin/Sodium Chloride (Oxytocin 30 Unit/500 Ml-Ns) 30 unit in 500 mls @ 250 mls/hr IV TITRATE [facility] Cefazolin Sodium/Dextrose 2 gm (/ Premix) 50 mls @ 100 mls/hr IV ONETIME ONE Stop: 05/05/20 20:29 Lactated Ringer's (Ringers, Lactated) 1,000 mls @ 500 mls/hr IV BOLUS [facility] Last Admin: 05/05/20 18:37 Dose: 999 mls/hr Documented by: Ketorolac Tromethamine (Toradol) Confirm Administered Dose 30 mg .ROUTE .STK-MED ONE Stop: 05/05/20 19:05 Ketorolac Tromethamine (Toradol) 30 mg IVPUSH Q6H [facility] Stop: 05/06/20 19:01 Last Admin: 05/06/20 21:31 Dose: 30 mg Documented by: Ketorolac Tromethamine (Toradol) Confirm Administered Dose 30 mg .ROUTE .STK-MED ONE Stop: 05/06/20 21:26 Morphine Sulfate (Duramorph Pf) Confirm Administered Dose 10 mg .ROUTE .STK-MED ONE Stop: 05/05/20 18:55 Ondansetron HCl (Zofran) Confirm Administered Dose 4 mg .ROUTE .STK-MED ONE Stop: 05/05/20 19:05 Oxytocin (Pitocin) Confirm Administered Dose 20 unit .ROUTE .STK-MED ONE Stop: 05/05/20 19:05 Phenylephrine HCl (Justin-Synephrine) Confirm Administered Dose 10 mg .ROUTE .STK- MED ONE Stop: 05/05/20 19:05 Propofol (Diprivan 20 Ml) Confirm Administered Dose 200 mg .ROUTE .STK-MED ONE Stop: 05/05/20 20:39 Sodium Chloride (Saline Flush) 10 ml FLUSH ASDIRECTED PRN PRN Reason: Keep Vein Open Sodium Chloride (Saline Flush) 2.5 ml FLUSH ASDIRECTED PRN PRN Reason: Keep Vein Open Sodium Chloride (Normal Saline) 10 ml IV ASDIRECTED PRN PRN Reason: IV Use Sepsis Event Note - Focused Exam Vital Signs: Vital Signs Temp Pulse Resp BP Pulse Ox 05/07/20 08:13 36.2 C 86 18 121/72 97 05/07/20 04:36 36.4 C 91 16 105/69 95 - Problem List & Annotations (1) delivery delivered SNOMED Code(s): 025798277 Code(s): O82 - ENCOUNTER FOR DELIVERY WITHOUT INDICATION Status: Acute Priority: High Current Visit: No Onset Date: ~05/05/20 - My Orders Last 24 Hours: Active Orders 24 hr Category Date Time Status Docusate Sodium [Colace] Med 05/06/20 09:00 Active 100 mg PO BID Medication Orders Bisacodyl (Dulcolax) 10 mg RECTAL ONETIME PRN PRN Reason: Constipation Diphenhydramine HCl (Benadryl) 25 mg IVPUSH Q6H PRN PRN Reason: Itching or Nausea Docusate Sodium (Colace) 100 mg PO BID [facility] Last Admin: 05/06/20 21:30 Dose: 100 mg Documented by: Admin: 05/06/20 09:28 Dose: 100 mg Documented by: BAKEMOL Emollient Ointment (Lansinoh Hpa) 0 gm TOP ASDIRECTED PRN PRN Reason: Sore Nipples Fentanyl (Sublimaze) 50 mcg IVPUSH Q1H PRN PRN Reason: Pain (severe 7-10) Lactated Ringer's (Ringers, Lactated) 1,000 mls @ 125 mls/hr IV ASDIRECTED [facility] Last Admin: 05/05/20 21:51 Dose: 125 mls/hr Documented by: PHYLLIS Oxytocin/Lactated Ringer's (Pitocin In Lr 30 Units/500 Ml) 30 unit in 500 mls @ 999 mls/hr IV TITRATE [facility]; Protocol Tranexamic Acid 1,000 mg/ (Sodium Chloride) 110 mls @ 660 mls/hr IV ONETIME PRN PRN Reason: Bleeding Ibuprofen (Motrin) 800 mg PO Q8H PRN PRN Reason: mild pain or fever Methylergonovine Maleate (Methergine) 0.2 mg IM ONETIME PRN PRN Reason: Excessive Vaginal Bleeding Misoprostol (Cytotec) 1,000 mcg RECTAL ONETIME PRN PRN Reason: excessive bleeding Nalbuphine HCl (Nubain) 5 mg IVPUSH ASDIRECTED PRN PRN Reason: Itching Naloxone HCl (Narcan) 0.1 mg IVPUSH ONETIME PRN PRN Reason: Respiratory Depression Ondansetron HCl (Zofran) 4 mg IVPUSH Q6H PRN PRN Reason: Nausea Ondansetron HCl (Zofran) 4 mg IVPUSH Q4H PRN PRN Reason: Nausea/Vomiting Oxycodone/Acetaminophen (Percocet 325-5 Mg) 2 tab PO Q6H PRN PRN Reason: Pain (moderate 4-6) Oxycodone/Acetaminophen (Percocet 325-5 Mg) 1 tab PO Q4H PRN PRN Reason: Pain (moderate 4-6) Oxycodone/Acetaminophen (Percocet 325-5 Mg) 2 tab PO Q4H PRN PRN Reason: Pain (moderate 4-6) Last Admin: 05/07/20 03:13 Dose: 2 tab Documented by: CUCA Oxytocin (Pitocin) 10 unit IM ASDIRECTED PRN PRN Reason: Excessive Vaginal Bleeding - Plan Plan (Free Text/Narrative):: Doing well overall-_VS and labs are stable. Would like to go home. Discharge to home today. Discharge instructions reviewed. Follow up at [facility] 2 and 4 weeks.
[2020-05-07 08:15] VITALS: BP 121/72; PULSE 86
[2020-05-07] MEDS: Docusate Sodium 100 MG Cap PO SCH (09:11)
== END 2020-05-07 13:58 | disposition home or self-care (01) | DRG 788 ==
LOC: MW.OBCHECK 17:33 → MW.OB 17:33 → MW.OBCHECK 17:46 → MW.OB 17:46
PROVIDERS: ADMIT Obstetrics & Gynecology; ATTEND Obstetrics & Gynecology
PROC: 10D00Z1 Extraction of Products of Conception, Low, Open Approach (ICD-10-PCS; principal; 2020-05-05)
DX: O34.211 Maternal care for low transverse scar from previous cesarean delivery (principal); Z37.0 Single live birth; Z3A.39 39 weeks gestation of pregnancy
CPT/HCPCS: 01961; 36415; 82803; 85014; 85018; 85027; 86850; 86900; 86901; A9270-GY; J1200; J1885; J2270; J2370; J2405; J2590; J2704; J7120

== ENCOUNTER 2021-09-18 05:36 | Inpatient (IN) | payer MEDICAID ==
[2021-09-18] MEDS ORDERED: ceFAZolin 2 GM in Premix Bag 1 BAG IV ONE (05:38)
[2021-09-18] MEDS ORDERED: Sodium Chloride 0.9% 20 ML SDV IV PRN (05:38)
[2021-09-18] MEDS ORDERED: Sodium Chloride 0.9% 10 ML Syringe FLUSH PRN (05:38)
[2021-09-18] MEDS ORDERED: Sodium Chloride 0.9% 2.5 ML Syringe FLUSH PRN (05:38)
[2021-09-18] MEDS ORDERED: Oxytocin/0.9 % Sodium Chloride 30 UNIT/500 ML BAG IV SCH (05:45)
[2021-09-18] MEDS: Lactated Ringers 1,000 ML IV SCH ×2 (06:15→06:54)
[2021-09-18] MEDS ORDERED: Octyl 2-Cyanoacrylate 1 Tube ONE (06:56)
[2021-09-18] MEDS ORDERED: ceFAZolin 1 GM Vial ONE (07:01)
[2021-09-18] MEDS ORDERED: Oxytocin 10 Units/1 ML SDV ONE (07:01)
[2021-09-18] MEDS ORDERED: Dexamethasone 4 MG/ML 5 ML MDV ONE (07:01)
[2021-09-18] MEDS ORDERED: Dexmedetomidine 200 MCG/2 ML SDV ONE (07:01)
[2021-09-18] MEDS ORDERED: Water For Injection, Sterile 20 ML ONE (07:01)
[2021-09-18] MEDS ORDERED: Ondansetron 4 MG/2 ML SDV ONE (07:01)
[2021-09-18] MEDS ORDERED: Morphine PF 10 MG/10 ML SDV ONE (07:07)
[2021-09-18] MEDS ORDERED: ePHEDrine 50 MG/ML SDV ONE ×2 (08:51→09:22)
[2021-09-18] MEDS ORDERED: Ondansetron 4 MG/2 ML SDV IVPUSH PRN (09:13)
[2021-09-18] MEDS ORDERED: Tranexamic Acid 1,000 MG in Sodium Chloride 0.9% 100 ML IV PRN (09:13)
[2021-09-18] MEDS ORDERED: Bisacodyl 10 MG Supp RECTAL PRN (09:13)
[2021-09-18] MEDS ORDERED: Lanolin 100% Cream 7 GM Tube TOP PRN (09:13)
[2021-09-18] MEDS ORDERED: Methylergonovine 0.2 MG/1 ML Amp IM PRN (09:13)
[2021-09-18] MEDS ORDERED: Acetaminophen/oxyCODONE 325-5 MG Tab PO PRN (09:13)
[2021-09-18] MEDS ORDERED: diphenhydrAMINE 50 MG/ML SDV IVPUSH PRN ×2 (09:13→09:41)
[2021-09-18] MEDS ORDERED: Misoprostol 200 MCG Tab RECTAL PRN (09:13)
[2021-09-18] MEDS ORDERED: Lactated Ringers 1,000 ML IV SCH (09:15)
[2021-09-18] MEDS ORDERED: Ketorolac 30 MG/ML SDV IVPUSH SCH (09:15)
[2021-09-18] MEDS ORDERED: Aluminum Hydroxide/Magnesium Hydroxide/Simethicone XS Susp 30 ML Cup PO PRN (09:20)
[2021-09-18] MEDS ORDERED: Rocuronium 100 MG/10 ML MDV ONE (09:22)
[2021-09-18] MEDS ORDERED: Naloxone 0.4 MG/ML SDV IVPUSH PRN (09:41)
[2021-09-18] MEDS ORDERED: Nalbuphine HCl 10 MG/ 1ML Amp IVPUSH PRN (09:42)
[2021-09-18] MEDS ORDERED: ePHEDrine 50 MG/ML SDV IVPUSH PRN (09:44)
[2021-09-18] MEDS: Simethicone 80 MG Tab.Chew PO SCH ×2 (12:00→18:00)
[2021-09-18] MEDS: Ketorolac 30 MG/ML SDV IVPUSH SCH (18:41)
[2021-09-18] MEDS: Docusate Sodium 100 MG Cap PO SCH (20:55)
[2021-09-19] MEDS: Simethicone 80 MG Tab.Chew PO SCH ×4 (00:34→19:31)
[2021-09-19] MEDS: Ketorolac 30 MG/ML SDV IVPUSH SCH ×3 (00:35→12:18)
[2021-09-19 08:12] LABS: CARBON DIOXIDE,CO2 23.6 mmol/L (21.0-32.0); POTASSIUM,K 3.7 mmol/L (3.5-5.1)
[2021-09-19] MEDS: Docusate Sodium 100 MG Cap PO SCH ×2 (09:34→21:12)
[2021-09-19] MEDS: Ibuprofen 800 MG Tab PO PRN (19:31)
[2021-09-19] MEDS: Acetaminophen/oxyCODONE 325-5 MG Tab PO PRN (21:12)
[2021-09-20] MEDS: Simethicone 80 MG Tab.Chew PO SCH ×2 (01:49→06:45)
[2021-09-20] MEDS: Acetaminophen/oxyCODONE 325-5 MG Tab PO PRN ×2 (01:49→13:18)
[2021-09-20] MEDS: Ibuprofen 800 MG Tab PO PRN (07:33)
[2021-09-20 09:32] VITALS: BP 103/56; PULSE 83
== END 2021-09-20 13:53 | disposition home or self-care (01) | DRG 788 ==
LOC: MW.OB 05:36
PROVIDERS: ADMIT Obstetrics & Gynecology; ATTEND Obstetrics & Gynecology
PROC: 10D00Z1 Extraction of Products of Conception, Low, Open Approach (ICD-10-PCS; principal; 2021-09-18)
PROC: 3E0234Z Introduction of Serum, Toxoid and Vaccine into Muscle, Percutaneous Approach (ICD-10-PCS; 2021-09-19)
DX: O34.211 Maternal care for low transverse scar from previous cesarean delivery (principal); Z37.0 Single live birth; Z3A.39 39 weeks gestation of pregnancy; O99.02 Anemia complicating childbirth; D64.9 Anemia, unspecified; O24.424 Gestational diabetes mellitus in childbirth, insulin controlled; O99.214 Obesity complicating childbirth; Z20.822 Contact with and (suspected) exposure to COVID-19; O26.893 Other specified pregnancy related conditions, third trimester; Z67.11 Type A blood, Rh negative; Z87.891 Personal history of nicotine dependence
CPT/HCPCS: 36415; 59025; 80053; 82947; 85027; 85384; 85610; 86592; 86850; 86900; 86901; A9270-GY; J0690; J1100; J1200; J1885; J2274; J2370; J2405; J2590; J7120; U0002